=== PATIENT | female | born 1950 | race Caucasian/White ===

== ENCOUNTER 2020-05-28 11:02 | Outpatient (REF) | payer BC, SELFPAY ==
--- NOTE | 2020-05-28 11:16 | XR_ITS ---
EXAMINATION: XR CHEST CLINICAL INFORMATION: Bronchitis COMPARISON: Prior chest August 2015. TECHNIQUE: 2 views of the chest were obtained. FINDINGS: No acute significant abnormality is noted involving the heart, lungs, mediastinum, bony thorax or soft tissues. Spondylosis of the dorsal spine unchanged. XR/XR chest 2V IMPRESSION: No acute disease
[2020-05-28 13:15] LABS: Anion Gap 10 (12-20); Blood Urea Nitrogen 11 mg/dL (9-16); Carbon Dioxide 34 mmol/L (22-29); Chloride 101 mmol/L (96-108); Estimated Glomerular Filt Rate > 60; Glucose Fasting 122 mg/dL (60-99); Potassium 4.1 mmol/l (3.3-5.1); Sodium 141 mmol/L (135-145)
[2020-05-28 13:26] LABS: TSH reflex Free T4 0.49 mIU/mL (0.32-4.0)
== END 2020-05-28 11:03 | disposition home or self-care (01) ==
LOC: HO.LAB 11:02
PROVIDERS: PCP Internal Medicine; Visit Provider Nurse Practitioner Family
DX: E03.9 Hypothyroidism, unspecified (principal); E11.9 Type 2 diabetes mellitus without complications; J40 Bronchitis, not specified as acute or chronic
CPT/HCPCS: 71046; 80048; 84443

== ENCOUNTER 2020-11-21 08:30 | Outpatient (REF) | payer BC, SELFPAY ==
--- NOTE | ~2020-11-21 | MM_ITS ---
EXAMINATION: MM SCREENING DIGITAL BREAST TOMOSYNTHESIS, BILATERAL CLINICAL INFORMATION: Screening. Asymptomatic. The lifetime risk of breast cancer based on the Tyrer-Cuzick Model is 3%. COMPARISON: Mammography: 12/31/2016, 05/16/2013, 05/04/2013 TECHNIQUE: Digital breast tomosynthesis is performed in both the craniocaudal and mediolateral oblique views along with computer-aided detection (CAD). Synthesized 2D images are generated from the tomosynthesis. Additional bilateral CC and additional left MLO views are provided. FINDINGS: There are scattered areas of fibroglandular density (ACR BI-RADS breast composition Category b). There are no significant masses, abnormal calcifications, or other abnormalities. Parenchymal pattern is similar to prior studies. The axilla and skin contours are unremarkable. MM/MM tomosynthesis screening BI IMPRESSION: No mammographic evidence of malignancy. ASSESSMENT: BI-RADS 1: Negative RECOMMENDATION: Routine annual mammography screening. This patient's information was entered into a reminder system with a target due date for their next mammogram.
== END 2020-11-21 08:31 | disposition home or self-care (01) ==
LOC: HO.MAMMO 08:30
PROVIDERS: PCP Internal Medicine; Visit Provider Internal Medicine
DX: Z12.31 Encounter for screening mammogram for malignant neoplasm of breast (principal)
CPT/HCPCS: 77063; 77067

== ENCOUNTER 2021-02-11 15:17 | Outpatient (REF) | payer BC, SELFPAY ==
--- NOTE | ~2021-02-11 | US_ITS ---
EXAMINATION: US VENOUS ULTRASOUND WITH DOPPLER LOWER EXTREMITY, LEFT CLINICAL INFORMATION: Pain lower extremity. Assess for occult DVT. COMPARISON: None TECHNIQUE: Ultrasound of the deep veins is performed from the hip to the calf with compression sonography and color and pulse Doppler assessment. Spectral analysis with color-flow imaging is performed. FINDINGS: There is normal venous compression and respiratory variation and augmented flow. The visualized common femoral vein, superficial femoral vein, profunda femoral vein, popliteal vein, and the trifurcation region shows no evidence of deep venous thrombosis. There is small popliteal fossa cyst measuring 3.3 x 1.3 x 3.4 cm. US/US venous duplex LE LT IMPRESSION: 1. No DVT demonstrated in the left lower extremity. 2. Small popliteal fossa cyst, 3.4 cm.
== END 2021-02-11 15:18 | disposition home or self-care (01) ==
LOC: HO.US 15:17
PROVIDERS: Visit Provider Internal Medicine
DX: M71.22 Synovial cyst of popliteal space [Baker], left knee (principal); M79.605 Pain in left leg
CPT/HCPCS: 93971

== ENCOUNTER 2021-02-15 08:54 | Outpatient (REF) | payer BC, SELFPAY ==
[2021-02-15 09:59] LABS: Hematocrit 40.7 % (37-47); Hemoglobin 12.9 g/dl (12.0-16.0); Mean Corpuscular HGB Conc 31.7 g/dl (31.0-35.0); Mean Corpuscular Hemoglobin 27.7 pg (27.0-33.0); Mean Corpuscular Volume 87.5 fL (80-98); Mean Platelet Volume 10.8 fL (9.4-12.3); Platelet Count 282 X10*3/uL (160-400); Red Blood Count 4.65 X10*6/uL (4.20-5.50); Red Cell Distribution Width 13.2 % (11.0-16.0)
[2021-02-15 10:28] LABS: Glucose Urine UA NEG (NEG); Leukocyte Esterase Urine 2+ (NEG); Nitrite Urine NEG (NEG); Specific Gravity - Urine 1.015 (1.005-1.025); Urine Blood NEG (NEG); Urine Ketones NEG (NEG); Urine Protein NEG (NEG-TRACE)
[2021-02-15 10:38] LABS: Appearance Urine HAZY; Color Urine YELLOW
[2021-02-15 11:05] LABS: RBC Urine 0-2 /HPF (0); Renal Epithelial Cells Urine TRACE /LPF; Squamous Epithelial Cell Urine TRACE /LPF
[2021-02-15 11:12] LABS: Alanine Aminotransferase 10 U/L (0-31); Albumin Level 3.8 g/dL (3.5-5.0); Alkaline Phosphatase 80 U/L (39-117); Anion Gap 13 (12-20); Aspartate Amino Transferase 15 U/L (5-31); Bilirubin Direct < 0.2 mg/dL (0.0-0.5); Bilirubin Total 0.3 mg/dL (0.0-1.0); Blood Urea Nitrogen 13 mg/dL (9-16); Calcium 9.5 mg/dL (8.4-10.2); Carbon Dioxide 29 mmol/L (22-29); Chloride 104 mmol/L (96-108); Cholesterol 184 mg/dL; Estimated Glomerular Filt Rate > 60; Glucose Random 93 mg/dL (60-115); HDL Cholesterol 50 mg/dL; LDL Cholesterol Calculated 113 mg/dl; Potassium 4.4 mmol/L (3.3-5.1); Sodium 142 mmol/L (135-145); Total Protein 7.1 g/dL (6.5-8.0); Triglycerides 105 mg/dL
[2021-02-15 11:22] LABS: Thyroid Stimulating Hormone 0.49 uIU/mL (0.32-4.0)
[2021-02-19 14:35] LABS: Vitamin D 25-OH, D2 <4 ng/mL; Vitamin D 25-OH, D3 18 ng/mL; Vitamin D 25-OH, Total 18 ng/mL (30-100)
== END 2021-02-15 08:55 | disposition home or self-care (01) ==
LOC: HO.LAB 08:54
PROVIDERS: PCP Internal Medicine; Visit Provider Internal Medicine
DX: Z00.00 Encounter for general adult medical examination without abnormal findings (principal)
CPT/HCPCS: 36415; 80048; 80061; 80076; 81001; 82306; 84443; 85027

== ENCOUNTER 2021-08-02 15:20 | Outpatient (REF) | payer BC, SELFPAY ==
[2021-08-02 15:41] LABS: Appearance Urine CLEAR; Color Urine YELLOW; Glucose Urine UA NEG (NEG); Leukocyte Esterase Urine 2+ (NEG); Nitrite Urine NEG (NEG); Urine Blood NEG (NEG); Urine Ketones NEG (NEG); Urine Protein NEG (NEG-TRACE)
[2021-08-02 15:54] LABS: Bacteria Urine 1+ /LPF; RBC Urine 0 /HPF (0); Squamous Epithelial Cell Urine 1+ /LPF
[2021-08-02 15:55] LABS: Urine Talc Crystals 1+ /LPF
== END 2021-08-02 15:21 | disposition home or self-care (01) ==
LOC: HO.LAB 15:20
PROVIDERS: PCP Internal Medicine; Visit Provider Internal Medicine
DX: N39.0 Urinary tract infection, site not specified (principal)
CPT/HCPCS: 81001

== ENCOUNTER 2022-03-18 07:33 | Outpatient (REF) | payer BC, SELFPAY ==
[2022-03-18 08:06] LABS: Hematocrit 41.8 % (37.0-47.0); Hemoglobin 13.7 g/dl (12.0-16.0); Mean Corpuscular HGB Conc 32.8 g/dl (31.0-35.0); Mean Corpuscular Hemoglobin 28.5 pg (27.0-33.0); Mean Corpuscular Volume 86.9 fL (80.0-98.0); Mean Platelet Volume 10.1 fL (9.4-12.3); Platelet Count 280 X10*3/uL (160-400); Red Blood Count 4.81 X10*6/uL (4.20-5.50); Red Cell Distribution Width 12.9 % (11.0-16.0); White Blood Count 6.3 X10*3/uL (4.8-10.8)
[2022-03-18 08:36] LABS: Alanine Aminotransferase 12 U/L (0-31); Albumin Level 3.9 g/dL (3.5-5.0); Alkaline Phosphatase 81 U/L (39-117); Anion Gap 14 (12-20); Aspartate Amino Transferase 16 U/L (5-31); Bilirubin Direct < 0.2 mg/dL (0.0-0.5); Bilirubin Total 0.2 mg/dL (0.0-1.0); Blood Urea Nitrogen 14 mg/dL (9-16); Calcium 9.5 mg/dL (8.4-10.2); Carbon Dioxide 30 mmol/L (22-29); Chloride 102 mmol/L (96-108); Cholesterol 198 mg/dL; Estimated Glomerular Filt Rate > 60; Glucose Random 112 mg/dL (60-115); HDL Cholesterol 66 mg/dL; LDL Cholesterol Calculated 120 mg/dl; Potassium 4.7 mmol/L (3.3-5.1); Sodium 141 mmol/L (135-145); Total Protein 7.4 g/dL (6.5-8.0); Triglycerides 61 mg/dL
[2022-03-18 08:57] LABS: Thyroid Stimulating Hormone 0.79 uIU/mL (0.32-4.0)
[2022-03-18 09:24] LABS: Appearance Urine Clear; Color Urine Yellow; Glucose Urine UA Negative (Negative); Leukocyte Esterase Urine Moderate (2+) (Negative); Nitrite Urine Negative (Negative); Urine Blood Negative (Negative); Urine Ketones Negative (Negative); Urine Protein Negative (Neg-Trace)
[2022-03-18 09:52] LABS: Bacteria Urine None Seen (None Seen); Hyaline Casts Urine 0-2 /LPF (0-2); Other Crystals Urine Present; WBC Urine 0-5 /HPF (0-5)
== END 2022-03-18 07:34 | disposition home or self-care (01) ==
LOC: HO.LAB 07:33
PROVIDERS: PCP Internal Medicine; Visit Provider Internal Medicine
DX: Z00.00 Encounter for general adult medical examination without abnormal findings (principal)
CPT/HCPCS: 36415; 80048; 80061; 80076; 81001; 84443; 85027

== ENCOUNTER 2022-03-30 11:13 | Outpatient (REF) | payer BC, SELFPAY | END 2022-03-30 11:14 | disposition home or self-care (01) | LOC: HO.LNP 11:13 | PROVIDERS: Visit Provider Emergency Medicine | DX: N39.0 Urinary tract infection, site not specified (principal) | CPT/HCPCS: 87086 ==

== ENCOUNTER 2022-04-06 14:56 | Outpatient (REF) | payer BC, SELFPAY ==
[2022-04-06 15:44] LABS: Estimated Average Glucose 114 mg/dL; Hemoglobin A1c % 5.6 %
[2022-04-06 16:31] LABS: Appearance Urine Clear; Color Urine Yellow; Glucose Urine UA Negative (Negative); Leukocyte Esterase Urine Small (1+) (Negative); Nitrite Urine Negative (Negative); PH 5.5 (5.0-9.0); Specific Gravity - Urine 1.015 (1.005-1.025); UMIC TRIGGER UA YES; Urine Blood Negative (Negative); Urine Ketones Trace mg/dL (Negative); Urine Protein Negative (Neg-Trace)
[2022-04-06 16:39] LABS: Bacteria Urine None Seen (None Seen); Hyaline Casts Urine 0-2 /LPF (0-2); WBC Urine 0-5 /HPF (0-5)
== END 2022-04-06 14:57 | disposition home or self-care (01) ==
LOC: HO.LAB 14:56
PROVIDERS: PCP Internal Medicine; Visit Provider Internal Medicine
DX: R81 Glycosuria (principal)
CPT/HCPCS: 36415; 81001; 83036

== ENCOUNTER 2022-04-25 07:39 | Outpatient (REF) | payer BC, SELFPAY ==
[2022-04-25 08:51] LABS: Influenza A PCR NEGATIVE (Negative); Influenza B PCR NEGATIVE (Negative); Resp Syncy Virus RNA Qual PCR NEGATIVE (Negative); SARS COV2 PCR INHOUSE NEGATIVE (Negative)
== END 2022-04-25 07:40 | disposition home or self-care (01) ==
LOC: HO.LAB 07:39
PROVIDERS: Visit Provider Nurse Practitioner Family
DX: U07.1 COVID-19 (principal)
CPT/HCPCS: 0241U

== ENCOUNTER 2022-08-27 15:28 | Outpatient (REF) | payer BC, SELFPAY ==
[2022-08-27 16:24] LABS: Influenza A PCR NEGATIVE (Negative); Influenza B PCR NEGATIVE (Negative); Resp Syncy Virus RNA Qual PCR NEGATIVE (Negative); SARS COV2 PCR INHOUSE NEGATIVE (Negative)
== END 2022-08-27 15:29 | disposition home or self-care (01) ==
LOC: HO.LNP 15:28
PROVIDERS: Visit Provider Physician Assistant Medical
DX: Z20.822 Contact with and (suspected) exposure to COVID-19 (principal); R05.9 Cough, unspecified
CPT/HCPCS: 0241U

== ENCOUNTER 2022-09-19 10:26 | Outpatient (REF) | payer BC, SELFPAY ==
[2022-09-19 11:06] LABS: Hematocrit 41.8 % (37.0-47.0); Hemoglobin 13.2 g/dl (12.0-16.0); Mean Corpuscular HGB Conc 31.6 g/dl (31.0-35.0); Mean Corpuscular Hemoglobin 27.4 pg (27.0-33.0); Mean Corpuscular Volume 86.9 fL (80.0-98.0); Mean Platelet Volume 10.2 fL (9.4-12.3); Platelet Count 275 X10*3/uL (160-400); Red Blood Count 4.81 X10*6/uL (4.20-5.50); Red Cell Distribution Width 13.6 % (11.0-16.0); White Blood Count 6.9 X10*3/uL (4.8-10.8)
[2022-09-19 11:54] LABS: Alanine Aminotransferase 13 U/L (0-31); Albumin Level 3.9 g/dL (3.5-5.0); Alkaline Phosphatase 82 U/L (39-117); Anion Gap 12 (12-20); Aspartate Amino Transferase 17 U/L (5-31); Bilirubin Direct < 0.2 mg/dL (0.0-0.5); Bilirubin Total 0.4 mg/dL (0.0-1.0); Blood Urea Nitrogen 16 mg/dL (9-16); Calcium 9.2 mg/dL (8.4-10.2); Carbon Dioxide 30 mmol/L (22-29); Chloride 106 mmol/L (96-108); Cholesterol 207 mg/dL; Estimated Glomerular Filt Rate > 60; Glucose Random 104 mg/dL (60-115); HDL Cholesterol 60 mg/dL; LDL Cholesterol Calculated 126 mg/dl; Potassium 4.8 mmol/L (3.3-5.1); Sodium 143 mmol/L (135-145); Total Protein 7.3 g/dL (6.5-8.0); Triglycerides 106 mg/dL
[2022-09-19 12:11] LABS: Thyroid Stimulating Hormone 0.72 uIU/mL (0.32-4.0)
[2022-09-19 12:20] LABS: Appearance Urine Cloudy; Color Urine Yellow; Glucose Urine UA Negative (Negative); Leukocyte Esterase Urine Trace (Negative); Nitrite Urine Negative (Negative); UMIC TRIGGER UA YES; Urine Blood Negative (Negative); Urine Ketones Negative (Negative); Urine Protein Negative (Neg-Trace)
[2022-09-19 12:32] LABS: Bacteria Urine None Seen (None Seen); Hyaline Casts Urine 0-2 /LPF (0-2); RBC Urine 0-2 /HPF (0-2); Squamous Epithelial Cell Urine 0-2 /HPF (0-2); WBC Urine 0-5 /HPF (0-5)
== END 2022-09-19 10:27 | disposition home or self-care (01) ==
LOC: HO.LAB 10:26
PROVIDERS: PCP Internal Medicine; Visit Provider Internal Medicine
DX: Z00.00 Encounter for general adult medical examination without abnormal findings (principal); E66.01 Morbid (severe) obesity due to excess calories; E03.9 Hypothyroidism, unspecified; I10 Essential (primary) hypertension; Z68.41 Body mass index [BMI] 40.0-44.9, adult
CPT/HCPCS: 36415; 80048; 80061; 80076; 81001; 84443; 85027

== ENCOUNTER 2022-10-01 09:44 | Outpatient (REF) | payer BC, SELFPAY ==
--- NOTE | ~2022-10-01 | MM_ITS ---
EXAMINATION: MM SCREENING DIGITAL BREAST TOMOSYNTHESIS, BILATERAL CLINICAL INFORMATION: Screening. Asymptomatic. The lifetime risk of breast cancer based on the Tyrer-Cuzick Model is 3%. COMPARISON: Mammography: 11/21/2020, 12/31/2016, 05/04/2013 TECHNIQUE: Digital breast tomosynthesis is performed in both the craniocaudal and mediolateral oblique views along with computer-aided detection (CAD). Synthesized 2D images are generated from the tomosynthesis. FINDINGS: There are scattered areas of fibroglandular density (ACR BI-RADS breast composition Category b). There are no significant masses, abnormal calcifications, or other abnormalities. Parenchymal pattern is similar to prior studies. No architectural abnormality. The axilla and skin contours are unremarkable. MM/MM tomosynthesis screening BI IMPRESSION: No mammographic evidence of malignancy. ASSESSMENT: BI-RADS 1: Negative RECOMMENDATION: Routine annual mammography screening. This patient's information was entered into a reminder system with a target due date for their next mammogram.
== END 2022-10-01 09:45 | disposition home or self-care (01) ==
LOC: HO.MAMMO 09:44
PROVIDERS: PCP Internal Medicine; Visit Provider Internal Medicine
DX: Z12.31 Encounter for screening mammogram for malignant neoplasm of breast (principal)
CPT/HCPCS: 77063; 77067

== ENCOUNTER 2023-05-11 10:24 | Outpatient (AMB) | payer BC, SELFPAY ==
[2023-05-11 10:26] VITALS: BP 160/94; PULSE 94; TEMP 36.7; O2SAT 97; BMI 49.1
--- NOTE | 2023-05-11 10:26 | A.OFFVIS_ITS ---
Intake Vital Signs 05/11/23 10:26 Height 5 ft 1.5 in Weight 264 lb BMI 49.1 BP 160/94 H Blood Pressure Location Lt brachial Position Sitting Pulse 94 Pulse Source Pulse Oximeter Temp 98.0 F Temp Source Oral Pulse Oximetry (%) 97 Oxygen Delivery Method Room Air Intake Visit Reasons: EST/high BP/weakness(lobby) Intake Note: Pt presents to the office today for c/o of high blood pressure that started this morning and she states she has been having body weakness and fatigue. Pt also states she has frequent urination and had a burning sensation yesterday when she urinated. Allergies acetaminophen [From Percocet] Allergy (Unknown, Verified 05/11/23 10:29) Vomiting morphine [MORPHINE] Allergy (Unknown, Verified 05/11/23 10:29) PALPITATION oxycodone [From Percocet] Allergy (Unknown, Verified 05/11/23 10:29) Vomiting HPI HPI Comments History of Present Illness Details 72-year-old female who [facility]. Patient is complaining of fatigue, weight gain, cough, excessive urination in elevated blood pressure. Endorses a fever 98. Denies chest pain [facility] Medical History Essential hypertension Hypercholesterolemia Morbid obesity with BMI of 40.0-44.9, adult Bautista's cyst of knee High cholesterol Hypothyroidism Hypertension Surgical History History of tubal ligation History of cholecystectomy Family History Mother No problems noted. Father No problems noted. Other Diabetes Social History Housing: House Alcohol intake: never Patient Tobacco Use Status: Never used Tobacco e-Cigarette/Vaping Use: Never Used Second Hand Smoke Exposure: No service: No Current occupational status: employed Cognitive needs: No Hearing needs: No Vision needs: Yes (glasses) Review of Systems Const Reports chills, Reports fatigue and Reports lethargy Reports urinary urgency Endo Reports fatigue Physical Exam Vital Signs: Last Vital Signs Temp 98.0 F 05/11/23 10: Pulse 94 05/11/23 10: BP 160/94 H 05/11/23 10:26 Pulse Ox 97 05/11/23 10:26 Oxygen Delivery Method Room Air 05/11/23 10:26 BMI result Body Mass Index 49.1 Const General: cooperative, no acute distress and alert Orientation/consciousness: patient oriented x3 Limitations: no limitations HEENT Head: Yes normal to inspection Ears: hearing grossly normal bilaterally and external ears normal General nose exam: Normal external nose present Eyes General: appearance normal, both eyes and all related structures Neck Neck: Yes normal visual inspection Chest Chest palpation & inspection: normal inspection of the chest Resp Effort & Inspection: normal respiratory effort, able to speak in complete sentences and no audible wheezes Auscultation: clear to auscultation bilaterally Cardio Other: 1- 2+ bilateral lower extremity edema Rate: regular rate Rhythm: regular rhythm GI Inspection: Yes normal to inspection Palpation (GI): Soft to palpation and nontender Skin General skin exam: no rashes or lesions noted Neuro General: patient oriented x3 Psych Appearance: grossly normal Mental Status: mental status grossly normal Speech and movement: Normal speech and movement present Affect: normal affect Attitude: cooperative Thought process: Normal thought process present Thought content: Normal thought content present Results AMB Urinalysis, Automated UA Leukoctes 0 Christofer/uL Last Edit by Aliza Wright MA on 05/11/23 10:50 UA Nitrite Negative Last Edit by Aliza Wright MA on 05/11/23 10:50 UA Urobilinogen 0.2 mg/dL Last Edit by Aliza Wright MA on 05/11/23 10:50 UA Protein 0 mg/dL Last Edit by Aliza Wright MA on 05/11/23 10:50 UA pH 6.5 Last Edit by Aliza Wright MA on 05/11/23 10:50 UA Blood 0 Bert/uL Last Edit by Aliza Wright MA on 05/11/23 10:50 UA Specific Moss 1.005 Last Edit by Aliza Wright MA on 05/11/23 10:50 UA Ketone Negative Last Edit by Aliza Wright MA on 05/11/23 10:50 UA Bilirubin 0 mg/dL Last Edit by Aliza Wright MA on 05/11/23 10:50 UA Glucose 0 mg/dL Last Edit by Aliza Wright MA on 05/11/23 10:50 AMB Random Glucose (hemocue) AMB Random Glucose (hemocue) 95 mg/dL Last Edit by Elizabeth Parikh CMA on 05/11/23 11:10 Results Reviewed Results Reviewed: Laboratory Last Values Urine pH (Auto) 6.5 05/11/23 10:49 Specific Moss (Auto) 1.005 05/11/23 10:49 Urine Protein (Auto) 0 mg/dL 05/11/23 10:49 Glucose (UA)(Auto) 0 mg/dL 05/11/23 10:49 Urine Ketones (Auto) Negative 05/11/23 10:49 Urine Blood (Auto) 0 Bert/uL 05/11/23 10:49 Urine Nitrite (Auto) Negative 05/11/23 10:49 Urine Bilirubin (Auto) 0 mg/dL 05/11/23 10:49 Urine Urobilinogen (Auto) 0.2 mg/dL 05/11/23 10:49 Leukocyte Esterase (Auto) 0 Christofer/uL 05/11/23 10:49 Assessment & Plan Assessment & Plan (1) Fatigue: Code(s): R53.83 - Other fatigue Qualifiers: Fatigue type: unspecified Qualified Code(s): R53.83 - Other fatigue Plan: Present notable for mild elevation of blood pressure. Exam patient is insulin oriented no acute distress exam notable for 1 to 2+ lower extremity edema bilaterally. Unclear etiology of patient's symptoms at this time. Her consideration is new onset diabetes however random glucose was 95. Also of consideration is medication interactions or reactions as patient recently started lisinopril and felt most of her symptoms started after that. At this time will start her on low-dose Lasix for several days as patient does have lower extremity edema. Will add on TSH to check patient's thyroid she has hypothyroidism which could be contributing to symptoms. With regard to patient's blood pressure no signs of end-organ damage so will hold ordered and the medication adjustments at this time patient will return to primary care provider Discharge instructions, follow up and treatment are discussed with patient in my usual fashion. Alternatives in treatment are also discussed. The patient will return for worsening symptoms or as needed. Advised that any labs/imaging ordered will be followed up on and contact made if further treatment needed. Counseled that patient's condition may require further evaluation and/or treatment. Symptoms of concern for worsening disorder discussed in detail in my customary manner. Patient does verbalize understanding of the plan, there are no apparent barriers to communication. The patient is given the opportunity to ask questions and have them answered to his/her satisfaction Orders: Orders AMB Urinalysis Automated Today Z13.9 - Encounter for screening, unspecified AMB Random Glucose (hemocue) Today Z13.9 - Encounter for screening, unspecified AMB Glucose monitoring Today R63.5 - Abnormal weight gain TSH reflex Free T4 Today E03.9 - Hypothyroidism, unspecified Medications: New furosemide 10 mg (1/2 x 20 mg) PO DAILY 3 tabs 0RF 5 days Coding Level of Care Code Est Pt Level 4 (83686) Diagnoses Fatigue, unspecified type R53.83 Fatigue type: unspecified
== END 2023-05-11 11:21 | disposition home or self-care (01) ==
PROVIDERS: PCP Internal Medicine; Visit Provider Physician Assistant
DX: R53.83 Other fatigue (principal); R63.5 Abnormal weight gain
CPT/HCPCS: 81003; 82948; 99214

== ENCOUNTER 2023-05-11 11:23 | Outpatient (REF) | payer BC, SELFPAY ==
[2023-05-11 13:39] LABS: TSH reflex Free T4 0.77 uIU/mL (0.32-4.0)
== END 2023-05-11 11:24 | disposition home or self-care (01) ==
LOC: HO.HMGCLDS 11:23
PROVIDERS: PCP Internal Medicine; Visit Provider Physician Assistant
DX: E03.9 Hypothyroidism, unspecified (principal)
CPT/HCPCS: 36415; 84443

== ENCOUNTER 2023-05-18 14:38 | Outpatient (AMB) | payer BC, SELFPAY ==
--- NOTE | 2023-05-18 14:40 | A.OFFPC_ITS ---
Vital Signs 05/18/23 14:54 Height 5 ft 1.5 in Weight 263 lb BMI 48.9 BP 130/70 Blood Pressure Location Lt brachial Position Sitting Pulse 80 Pulse Source Pulse Oximeter Pulse Oximetry (%) 96 Oxygen Delivery Method Room Air Intake Visit Reasons: 6mth f/u HTN Intake Note: Patient is here to follow up on HTN. Software Installer Required: No Financial Accounting Manager: Not Required per policy Accompanied by: Self / Same As Patient Allergies acetaminophen [From Percocet] Allergy (Unknown, Verified 05/19/23 04:43) Vomiting morphine [MORPHINE] Allergy (Unknown, Verified 05/19/23 04:43) PALPITATION oxycodone [From Percocet] Allergy (Unknown, Verified 05/19/23 04:43) Vomiting lisinopril Adverse Reaction (Intermediate, Verified 05/19/23 04:43) Diarrhea Medication List - Last Reconciled 05/19/23 by Steven Bhat MD levothyroxine 75 mcg PO DAILY losartan 50 mg PO DAILY omeprazole 20 mg PO DAILY simvastatin 10 mg PO BEDTIME Tobacco use date assessed: 05/18/23 Fall risk assessment: No Falls in past year Last assessed Fall Risk: 05/18/23 Dental Screening Dental Screen Date: 05/18/23 Did you have a dental visit in the last 12 months?: No Did you have a dental problem in the last 6 months where you did not have access to dental care?: No Was dental information given to patient?: Patient has dentist HPI 6mth f/u HTN HPI Details 72-year-old female presents to the offic e to discuss her chronic medical conditions. Patient is complaining of fatigue and tiredness. Symptoms are generalized. She wonders if her thyroid is malfunctioning. She was seen at the walk-in clinic last week for similar complaints. Her blood pressure was elevated and Lasix was offered to her. Patient did not take the Lasix. She is complaining of a slight irritant cough. Not exercising or following any particular diet. 16 lb weight gain since last office visi t. Patient reports no dietary indiscretion. [facility] Medical History Essential hypertension Hypercholesterolemia Morbid obesity with BMI of 40.0-44.9, adult Bautista's cyst of knee High cholesterol Hypothyroidism Hypertension Surgical History History of tubal ligation History of cholecystectomy Family History Mother No problems noted. Father No problems noted. Other Diabetes Social History Housing: House Alcohol intake: never Patient Tobacco Use Status: Never used Tobacco e-Cigarette/Vaping Use: Never Used Second Hand Smoke Exposure: No service: No Current occupational status: employed Cognitive needs: No Hearing needs: No Vision needs: Yes (glasses) Questionnaire PHQ-9 Over the last 2 weeks, how often have you been bothered by any of the following problems? Depression Screening Interpretation: Negative Depression Screening Done: Yes Source: Developed by Drs. Kevin Braxton, Sandie Felipe, Williams Villalpando and colleagues, with an educational ean from [employer]. Thrive Questionnaire Date Thrive assessed: 09/19/22 KERMIT-7 AMB Questionnaire KERMIT-7 Date KERMIT - 7 assessed: 09/19/22 Source: Developed by Drs. Kevin Braxton, Sandie Felipe, Williams Villalpando and colleagues, with an educational ean from [employer]. Physical exam (Primary Care) Vital Signs: Last Vital Signs Pulse 80 05/18/23 14:54 BP 130/70 05/18/23 14:54 Pulse Ox 96 05/18/23 14:54 Oxygen Delivery Method Room Air 05/18/23 14:54 Care Plan Goal for BP management: Blood pressure in range. Medications have been changed. BMI result Body Mass Index 48.9 BMI Assessment/Plan discussion: High Tobacco/Smoking Status: Tobacco use Status Tobacco use date assessed 05/18/23 05/18/23 15:00 Patient Tobacco Use Status Never used Tobacco 05/18/23 14:40 e-Cigarette/Vaping Use Never Used 05/18/23 14:40 Depression Screening Interpretation: Negative Thrive Assessment: Date of Thrive Assessment Date Thrive assessed 09/19/22 05/18/23 14:40 Const General: cooperative and healthy appearing Nutritional Appearance: well nourished Orientation/consciousness: patient oriented x3 Limitations: no limitations HENMT Head: Yes normal to inspection Eyes General: appearance normal, both eyes and all related structures Neck Neck: Yes normal visual inspection Chest Chest palpation & inspection: normal palpation of entire chest wall Resp Effort & Inspection: normal respiratory effort Neuro General: patient oriented x3 Office Procedures Flu Questionnaire Does the patient have a severe egg allergy?: No Does the patient have severe life threatening allergies?: No Does the patient have a fever or illness today?: No Has the patient ever had Guillain-[place] Syndrome?: No Has the patient ever had any past reaction to a flu shot?: No Immunizations flu vacc [id number] 6mos up(PF) 60 mcg(15 mcgx4)/0.5 mL IM syringe Performing Provider: Steven Bhat MD [facility] Administered by: TI Chavez on 05/18/23 15:06 Dose Route Admin Location Dispensed Lot Number Expiration Date NDC Oil Winterizer 0.5 mL IM Left Deltoid 0.5 mL [id number] 01/14/24 01136-295-29 [employer] VIS Given Date VIS Provided VIS Publication Date 05/18/23 Single Vaccine 21 Eligibility Eligibility Date Funding Source Not VF Eligible 05/18/23 Private Results Reviewed Results Reviewed: Lab work from previous visit to the walk-in reviewed. Assessment and Plan Assessment & Plan (1) Fatigue: Code(s): R53.83 - Other fatigue Plan: Her thyroid is in range. Patient was advised to continue Synthroid at the same dosage. Other reasons for her increased fatigue and malaise includes weight gain. Patient has to have a control on her diet. She needs to eliminate sugars, starches from her diet. Metoprolol and YOBANI-inhibitor has been replaced by a higher dose ARB. Will follow-up in 3 weeks. Orders: Orders Influenza [id number] Immunization 05/18/23 Z23 - Encounter for immunization Medications: New losartan 50 mg PO DAILY 30 tabs 0RF Discontinued metoprolol succinate ER Discontinued Reason: Doctor's Order 50 mg (2 x 25 mg) PO DAILY 180 tabs 1RF lisinopril Discontinued Reason: Doctor's Order 5 mg PO DAILY 30 tabs 3RF I10 - Essential (primary) hypertension furosemide Discontinued Reason: Patient Refused 10 mg (1/2 x 20 mg) PO DAILY 5 days 3 tabs 0RF Coding Level of Care Code Est Pt Level 4 (30491) Diagnoses Fatigue R53.83
[2023-05-18 14:54] VITALS: BP 130/70; PULSE 80; O2SAT 96; BMI 48.9
== END 2023-05-18 15:21 | disposition home or self-care (01) ==
PROVIDERS: PCP Internal Medicine; Visit Provider Internal Medicine
DX: Z23 Encounter for immunization (principal)
CPT/HCPCS: 90471; 90686; 99214

== ENCOUNTER 2023-05-27 08:05 | Outpatient (REF) | payer BC, SELFPAY ==
[2023-05-27 08:45] LABS: Hematocrit 42.4 % (37.0-47.0); Hemoglobin 13.6 g/dl (12.0-16.0); Mean Corpuscular HGB Conc 32.1 g/dl (31.0-35.0); Mean Corpuscular Hemoglobin 27.7 pg (27.0-33.0); Mean Corpuscular Volume 86.4 fL (80.0-98.0); Mean Platelet Volume 10.1 fL (9.4-12.3); Platelet Count 287 X10*3/uL (160-400); Red Blood Count 4.91 X10*6/uL (4.20-5.50); Red Cell Distribution Width 13.1 % (11.0-16.0); White Blood Count 5.8 X10*3/uL (4.8-10.8)
[2023-05-27 09:12] LABS: Alanine Aminotransferase 15 U/L (0-31); Albumin Level 3.9 g/dL (3.5-5.0); Alkaline Phosphatase 94 U/L (39-117); Anion Gap 11 (12-20); Aspartate Amino Transferase 20 U/L (5-31); Bilirubin Direct 0.2 mg/dL (0.0-0.5); Bilirubin Total 0.4 mg/dL (0.0-1.0); Blood Urea Nitrogen 12 mg/dL (9-16); Calcium 9.7 mg/dL (8.4-10.2); Carbon Dioxide 31 mmol/L (22-29); Chloride 104 mmol/L (96-108); Cholesterol 178 mg/dL (<200); Estimated Glomerular Filt Rate > 60; Glucose Random 108 mg/dL (60-115); HDL Cholesterol 57 mg/dL (>40); LDL Cholesterol Calculated 102 mg/dL (<100); Potassium 4.4 mmol/L (3.3-5.1); Sodium 142 mmol/L (135-145); Total Protein 7.8 g/dL (6.5-8.0); Triglycerides 99 mg/dL (<150)
[2023-05-27 09:34] LABS: Erythrocyte Sedimentation Rate 17 MM/HR (0-20)
== END 2023-05-27 08:06 | disposition home or self-care (01) ==
LOC: HO.LAB 08:05
PROVIDERS: PCP Internal Medicine; Visit Provider Internal Medicine
DX: R53.83 Other fatigue (principal); E78.00 Pure hypercholesterolemia, unspecified
CPT/HCPCS: 36415; 80048; 80061; 80076; 85027; 85652

== ENCOUNTER 2023-06-15 14:16 | Outpatient (AMB) | payer BC, SELFPAY ==
[2023-06-15 14:34] VITALS: BP 156/86; PULSE 90; O2SAT 97; BMI 48.3
--- NOTE | 2023-06-15 14:34 | A.OFFPC_ITS ---
Vital Signs 06/15/23 14:34 Height 5 ft 1.5 in Weight 260 lb BMI 48.3 BP 156/86 H Blood Pressure Location Lt brachial Position Sitting Pulse 90 Pulse Source Pulse Oximeter Pulse Oximetry (%) 97 Oxygen Delivery Method Room Air Intake Visit Reasons: 3wks f/u / med review Intake Note: Patient here for 3 week medication review On Site Soil Evaluator Required: No Accompanied by: Self / Same As Patient Allergies acetaminophen [From Percocet] Allergy (Unknown, Verified 06/15/23 14:37) Vomiting morphine [MORPHINE] Allergy (Unknown, Verified 06/15/23 14:37) PALPITATION oxycodone [From Percocet] Allergy (Unknown, Verified 06/15/23 14:37) Vomiting lisinopril Adverse Reaction (Intermediate, Verified 06/15/23 14:37) Diarrhea Tobacco use date assessed: 05/18/23 Fall risk assessment: No Falls in past year Last assessed Fall Risk: 06/15/23 Dental Screening Dental Screen Date: 06/15/23 Did you have a dental visit in the last 12 months?: Yes Did you have a dental problem in the last 6 months where you did not have access to dental care?: No Was dental information given to patient?: Patient has dentist HPI 3wks f/u / med review HPI Details 72-year-old female [facility]. Since last office visit, metoprolol was stopped and YOBANI-inhibitor started. She reports that her fatigue symptoms have improved. Not following any particular exercise. She is lost 3 lb after she has made some diet changes. [facility] Medical History Essential hypertension Hypercholesterolemia Morbid obesity with BMI of 40.0-44.9, adult Bautista's cyst of knee High cholesterol Hypothyroidism Hypertension Surgical History History of tubal ligation History of cholecystectomy Family History Mother No problems noted. Father No problems noted. Other Diabetes Social History Housing: House Alcohol intake: never Patient Tobacco Use Status: Never used Tobacco e-Cigarette/Vaping Use: Never Used Second Hand Smoke Exposure: No service: No Current occupational status: employed Cognitive needs: No Hearing needs: No Vision needs: Yes (glasses) Questionnaire Thrive Questionnaire Date Thrive assessed: 09/19/22 KERMIT-7 AMB Questionnaire KERMIT-7 Date KERMIT - 7 assessed: 09/19/22 Source: Developed by Drs. Kevin Braxton, Sandie Felipe, Williams Villalpando and colleagues, with an educational ean from [employer]. Physical exam (Primary Care) Vital Signs: Last Vital Signs Pulse 90 06/15/23 14:34 BP 156/86 H 06/15/23 14:34 Pulse Ox 97 06/15/23 14:34 Oxygen Delivery Method Room Air 06/15/23 14:34 BMI result Body Mass Index 48.3 Tobacco/Smoking Status: Tobacco use Status Tobacco use date assessed 05/18/23 06/15/23 14:40 Patient Tobacco Use Status Never used Tobacco 06/15/23 14:40 e-Cigarette/Vaping Use Never Used 06/15/23 14:40 Thrive Assessment: Date of Thrive Assessment Date Thrive assessed 09/19/22 06/15/23 14:40 Const General: cooperative and healthy appearing Nutritional Appearance: well nourished Orientation/consciousness: patient oriented x3 Limitations: no limitations HENMT Head: Yes normal to inspection Eyes General: appearance normal, both eyes and all related structures Neck Neck: Yes normal visual inspection Chest Chest palpation & inspection: normal palpation of entire chest wall Resp Effort & Inspection: normal respiratory effort Neuro General: patient oriented x3 Assessment and Plan Assessment & Plan (1) Fatigue: Code(s): R53.83 - Other fatigue Plan: Continue ARB. Blood pressure is slightly elevated. Sleep study has been ordered. (2) Obesity: Comment: BMI=44.8 Code(s): E66.9 - Obesity, unspecified Orders: Referrals Sleep Medicine Referral E66.9 - Obesity, unspecified, R53.83 - Other fatigue Coding Level of Care Code Est Pt Level 3 (97212) Diagnoses Fatigue R53.83 Obesity E66.9
== END 2023-06-15 15:20 | disposition home or self-care (01) ==
PROVIDERS: PCP Internal Medicine; Visit Provider Internal Medicine
DX: R53.83 Other fatigue (principal); E66.9 Obesity, unspecified; Z68.42 Body mass index [BMI] 45.0-49.9, adult
CPT/HCPCS: 99213

== ENCOUNTER 2023-07-20 08:56 | Outpatient (AMB) | payer BC, SELFPAY ==
--- NOTE | 2023-07-20 09:06 | MHC.PC.OV ---
Vital Signs 07/20/23 09:09 Height 5 ft 1.5 in Weight 258 lb BMI 48.0 BP 124/68 Blood Pressure Location Lt brachial Position Sitting Pulse 76 Pulse Source Pulse Oximeter Pulse Oximetry (%) 97 Oxygen Delivery Method Room Air Intake Visit Reasons: [facility] ED F/U 07/07/23 Intake Note: Patient is here to follow-up after a visit the emergency department at [facility] on 07/07/23 Credit Administration Officer Required: No Straightedge Machine Operator Helper: Not Required per policy Accompanied by: Self / Same As Patient Allergies acetaminophen [From Percocet] Allergy (Unknown, Verified 07/20/23 10:10) Vomiting morphine [MORPHINE] Allergy (Unknown, Verified 07/20/23 10:10) PALPITATION oxycodone [From Percocet] Allergy (Unknown, Verified 07/20/23 10:10) Vomiting lisinopril Adverse Reaction (Intermediate, Verified 07/20/23 10:10) Diarrhea Medication List - Last Reconciled 07/20/23 by Steven Bhat MD levothyroxine 75 mcg PO DAILY losartan 50 mg PO DAILY omeprazole 20 mg PO DAILY simvastatin 10 mg PO BEDTIME Tobacco use date assessed: 07/20/23 Fall risk assessment: No Falls in past year Last assessed Fall Risk: 07/20/23 Dental Screening Dental Screen Date: 07/20/23 Did you have a dental visit in the last 12 months?: Yes Did you have a dental problem in the last 6 months where you did not have access to dental care?: No Was dental information given to patient?: Patient has dentist HPI [facility] ED F/U 07/07/23 HPI Details 72-year-old female presents to the office after a recent visit today emergency room. Patient was started on 50 mg losartan in the last office visit. Her blood pressure was elevated to 156/80 and I had suggested increasing the losartan to 100 mg. Prior to her increasing the dosages, on her way to work, patient felt dizzy and weak and decided to proceed to [facility] emergency room. Again her blood pressure was elevated. CT scan of the head and abdomen was done which was unremarkable. She was ruled out for a stroke. Blood pressure medications were not changed and was asked to follow-up here. Patient continues to take 50 mg of losartan every day. Her blood pressure continues to be in the 150-160 systolic range. She does not report many symptoms. She has begun walking and has lost 5 lb since the last visit. She is also reduce the amount of salt intake. [facility] Medical History Essential hypertension Hypercholesterolemia Morbid obesity with BMI of 40.0-44.9, adult Bautista's cyst of knee High cholesterol Hypothyroidism Hypertension Surgical History History of tubal ligation History of cholecystectomy Family History Mother No problems noted. Father No problems noted. Other Diabetes Social History Housing: House Alcohol intake: never Patient Tobacco Use Status: Never used Tobacco e-Cigarette/Vaping Use: Never Used Second Hand Smoke Exposure: No service: No Current occupational status: employed Cognitive needs: No Hearing needs: No Vision needs: Yes (glasses) Questionnaire PHQ-9 Over the last 2 weeks, how often have you been bothered by any of the following problems? 1. Little interest or pleasure in doing things: not at all 2. Feeling down, depressed, or hopeless: not at all 3. Trouble falling or staying asleep, or sleeping too much: not at all 4. Feeling tired or having little energy: not at all 5. Poor appetite or overeating: not at all 6. Feeling bad about yourself - or that you are a failure or have let yourself or your family down: not at all 7. Trouble concentrating on things, such as reading the newspaper or watching television: not at all 8. Moving or speaking so slowly that other people could have noticed. Or the opposite - being so fidgety or restless that you have been moving around a lot more than usual: not at all 9. Thoughts that you would be better off or of hurting yourself in some way: not at all Total score: 0 Depression Screening Interpretation: Negative Depression Screening Done: Yes Source: Developed by Drs. Kevin Braxton, Sandie Felipe, Williams Villalpando and colleagues, with an educational ean from [employer]. Thrive Questionnaire Date Thrive assessed: 07/20/23 I am a: Patient What is your living situation today?: I have a steady place to live Within the past 12 months, did the food you bought not last and you didn't have the money to get more?: Never true Within the past 12 months, did you worry whether your food would run out before you got money to buy more?: Never true Do you have trouble paying for medicines?: No Do you have trouble getting transportation to medical appointments?: No Do you have trouble paying your heating and electricity bill?: No Do you have trouble taking care of your child, family member or friend?: No Do you have trouble with day-to-day activities such as bathing, preparing meals, shopping, managing finances, etc.?: No Are you currently unemployed and looking for a job?: No Are you interested in more education?: No Currently or been in a relationship where the following occur: no concerns reported AUDIT C Alcohol Use Questionnaire (AUDIT-C) 1. How often do you have a drink containing alcohol?: Never Total Score: 0 KERMIT-7 AMB Questionnaire KERMIT-7 Date KERMIT - 7 assessed: 07/20/23 Feeling nervous, anxious, or on edge: 0 = Not at all Not being able to stop or control worryin = Not at all Worrying too much about different things: 0 = Not at all Trouble relaxin = Not at all Being so restless that it is hard to sit still: 0 = Not at all Becoming easily annoyed or irritable: 0 = Not at all Feeling afraid as if something awful might happen: 0 = Not at all Total KERMIT-7 score (0-4 normal; 5-9 mild; 10-14 moderate; 15-21 severe): 0 Source: Developed by Drs. Kevin Braxton, Sandie Felipe, Williams Villalpando and colleagues, with an educational ean from [employer]. Physical exam (Primary Care) Vital Signs: Last Vital Signs Pulse 76 07/20/23 09:09 BP 124/68 07/20/23 09:09 Pulse Ox 97 07/20/23 09:09 Oxygen Delivery Method Room Air 07/20/23 09:09 BMI result Body Mass Index 48.0 Tobacco/Smoking Status: Tobacco use Status Tobacco use date assessed 07/20/23 07/20/23 09:15 Patient Tobacco Use Status Never used Tobacco 07/20/23 09:06 e-Cigarette/Vaping Use Never Used 07/20/23 09:06 PHQ-9: PHQ-9 Score PHQ-9: Total score 0 07/20/23 09:06 Depression Screening Interpretation: Negative Thrive Assessment: Date of Thrive Assessment Date Thrive assessed 07/20/23 07/20/23 09:06 Currently or been in a relationship where the following occur: no concerns reported Const General: cooperative and healthy appearing Nutritional Appearance: well nourished Orientation/consciousness: patient oriented x3 Limitations: no limitations HENMT Head: Yes normal to inspection Eyes General: appearance normal, both eyes and all related structures Neck Neck: Yes normal visual inspection Chest Chest palpation & inspection: normal palpation of entire chest wall Resp Effort & Inspection: normal respiratory effort Neuro General: patient oriented x3 Assessment and Plan Assessment & Plan (1) Essential hypertension: Code(s): I10 - Essential (primary) hypertension Plan: I recorded the blood pressure again and it was 150/80. Losartan has been increased to 100 mg once a day. Patient was advised to check blood pressures and report the log to the [facility] navigator. 20 minutes was spent reviewing labs and images from [facility]. Coding Level of Care Code Est Pt Level 4 (88965) Diagnoses Essential hypertension I10
[2023-07-20 09:09] VITALS: BP 124/68; PULSE 76; O2SAT 97; BMI 48.0
== END 2023-07-20 10:12 | disposition home or self-care (01) ==
PROVIDERS: PCP Internal Medicine; Visit Provider Internal Medicine
DX: I10 Essential (primary) hypertension (principal)
CPT/HCPCS: 99214

== ENCOUNTER 2023-09-11 15:42 | Emergency (ER) | payer BC, SELFPAY ==
--- NOTE | ~2023-09-11 | CT_ITS ---
EXAMINATION: CT ABDOMEN AND PELVIS WITHOUT CONTRAST CLINICAL INFORMATION: RLQ pain. COMPARISON: 10/20/2015. TECHNIQUE: Multidetector volumetric imaging was performed from the superior aspect of the liver through the pubic symphysis without contrast per renal stone protocol. Sagittal and coronal reformatted images were obtained on the technologist workstation. This CT examination was performed using dose optimization techniques as appropriate, variously including the following: *Automated exposure control *Adjustment of mA and/or kV according to patient size (this includes techniques or standardized protocols for targeted exams where dose is matched to indication/reason for exam; i.e. extremities or head) *Use of iterative reconstruction technique DLP: 1076 mGy-cm. FINDINGS: LUNG BASES: Linear basilar atelectasis. Moderate-sized hiatal hernia. LIVER, GALLBLADDER, BILIARY TREE: The non-contrast liver is normal in size, shape, and attenuation. No focal hepatic lesion or biliary ductal dilatation is present. Gallbladder surgically absent PANCREAS: Unremarkable. SPLEEN: Unremarkable. ADRENAL GLANDS: Unremarkable. KIDNEYS AND URETERS: The kidneys are normal in size, shape, and attenuation. 2.8 cm low-attenuation anterior midpole right renal cyst. No further evaluation this would be needed. No hydronephrosis, hydroureter, or perinephric stranding. No calculi. BLADDER: Decompressed GASTROINTESTINAL TRACT: The small and large bowel are unremarkable. The appendix is unremarkable. ABDOMINAL WALL: No significant hernia is appreciated. LYMPHOVASCULAR STRUCTURES: Vascular calcification within the aorta iliac system. No bulky adenopathy. PELVIC VISCERA: Unremarkable. OSSEUS STRUCTURES: Unremarkable. CT/CT abdomen pelvis wo IV con IMPRESSION: Chronic appearing changes as described above. I do not appreciate any acute intra-abdominal process.
[2023-09-11 16:13] VITALS: BP 157/93; PULSE 98; RESP 18; O2SAT 97; BMI 49.0
--- NOTE | 2023-09-11 16:14 | ED.GENADULT ---
HPI - General Adult General Chief complaint: Abdominal Pain Stated complaint: right side abd and back pain Time Seen by Provider: 09/11/23 18:17 Source: patient Mode of arrival: ambulatory Limitations: no limitations History of Present Illness HPI narrative: 72 year old female with pmhx significant for GERD, hypothyroidism, HTN, and HDL presents to the emergency department today from Urgent Care for evaluation of right lower quadrant pain on waking this morning. Admits the pain is now radiating to her right flank. Pain comes and goes. She was evaluated at urgent care for this and sent to the ED for further evaluation due to concern for acute appendicitis. Denies fever, chills, headache, dizziness, decreased appetite, nausea, vomiting, diarrhea, constipation, dysuria, or hematuria. Denies known sick contacts. Denies recent travel. Related Data Previous Rx's Medication Instructions Recorded omeprazole 20 mg capsule,delayed 20 mg PO DAILY #90 caps 03/22/23 release simvastatin 10 mg tablet 10 mg PO BEDTIME #30 tabs 08/03/23 levothyroxine 75 mcg tablet 75 mcg PO DAILY #30 tabs 09/02/23 losartan 50 mg tablet 100 mg (2 x 50 mg) PO DAILY #30 09/11/23 tabs Allergies Allergy/AdvReac Type Severity Reaction Status Date / Time acetaminophen [From Percocet] Allergy Unknown Vomiting Verified 07/20/23 10:10 morphine [MORPHINE] Allergy Unknown PALPITATION Verified 07/20/23 10:10 oxycodone [From Percocet] Allergy Unknown Vomiting Verified 07/20/23 10:10 lisinopril AdvReac Intermediate Diarrhea Verified 07/20/23 10:10 Review of Systems Review of Systems: Constitutional: No fever, chills, fatigue, night sweats, weight changes ENT/Mouth: No ear pain, hearing loss, nasal congestion, sinus pain, rhinorrhea, sore throat Eyes: No eye pain, swelling, redness, vision changes, discharge Cardio: No chest pain, palpitations, MCKEON, orthopnea, peripheral edema Pulm: No SOB, cough, sputum, wheezing, dyspnea, hemoptysis GI: No nausea, vomiting, hematemesis, diarrhea, constipation, hematochezia, melena, +abdominal pain : No irregular bleeding, dysuria, frequency, urgency, hesitancy, hematuria, flank pain, urinary flow changes, urinary incontinence or retention MSK: +back pain, No neck pain, joint pain, myalgias Skin: No lesions, rashes Neuro: No weakness, numbness, paresthesias, LOC, dizziness, headache All other systems reviewed and are negative. [facility] Past Medical History Attestation statement: The following information was validated with the patient. Source: old records reviewed and nursing notes reviewed Medical History Essential hypertension Hypercholesterolemia Morbid obesity with BMI of 40.0-44.9, adult Bautista's cyst of knee High cholesterol Hypothyroidism Hypertension Surgical History History of tubal ligation History of cholecystectomy Family History Family History Mother No problems noted. Father No problems noted. Other Diabetes Social History Social History Housing: House Alcohol intake: never Patient Tobacco Use Status: Never used Tobacco e-Cigarette/Vaping Use: Never Used Second Hand Smoke Exposure: No Advance Directives: No Advance Directives Information Provided: No service: No Current occupational status: employed Cognitive needs: No Hearing needs: No Vision needs: Yes (glasses) Physical Exam ED Vital Signs: Vital Signs - 24 hr 09/11/23 16:13 Pulse Rate 98 Respiratory Rate 18 Blood Pressure 157/93 H Pulse Oximetry 97 Oxygen Delivery Method Room Air BMI result Body Mass Index 49.0 Hypertensive, otherwise wnl. Afebrile. Const General: cooperative, healthy appearing, comfortable, no acute distress, alert, awake and Physically active Orientation/consciousness: patient oriented x3 Limitations: no limitations HENMT Head: Yes normal to inspection, Yes normocephalic and Yes atraumatic Eyes General: appearance normal, both eyes and all related structures Conjunctivae: conjunctivae normal Sclerae: sclerae normal Pupils: Equal, round and reactive pupils present EOM: EOMs intact bilaterally Neck Neck: Yes normal visual inspection, Yes full ROM and Yes no lymphadenopathy Resp Effort & Inspection: normal respiratory effort Auscultation: clear to auscultation bilaterally Cardio Rate: regular rate Rhythm: regular rhythm GI Other: + abd soft, nondistended, ttp of RLQ without rebound or guarding. no palpable masses or organomegally. normoactive bs x4. Inspection: Yes normal to inspection General: Yes no CVA tenderness Back/Spine/Pelvis Back: no CVA tenderness Skin General skin exam: no rashes or lesions noted Neuro General: patient oriented x3 and gait normal Cranial nerves: Yes Equal, round and reactive pupils present Gait exam (Neuro): Normal gait present Course Course Course Narrative: 1821-- CBC without leukocytosis or left shift. No anemia, H&H stable. Chemistry without acute electrolyte abnormality requiring intervention. Normal renal function. Normal liver function. Urine without infection or blood. CT scan shows right renal cyst, chronic in nature. No renal calculi or ureteral calculi. No signs of obstructive uropathy. No signs of acute appendicitis. CT abdomen/pelvis essentially unremarkable. There is no clear etiology for patient's symptoms. I discussed these results with her and what we have ruled out in the ED. She expresses relief and states that her pain has been improving since arriving to the ED. Discussed worrisome signs and symptoms and when to return to the ED. Patient has remained stable throughout visit today. All questions answered at this time. Patient is agreeable with disposition and stable for discharge. Medical Decision Making Medical Decision Making [facility] Narrative: 72 year old female with pmhx significant for GERD, hypothyroidism, HTN, and HDL presents to the emergency department today from Urgent Care for evaluation of right lower quadrant pain on waking this morning. Patient noted to be hypertensive, vitals otherwise WNL. She is nontoxic-appearing and in no acute distress. On exam, right lower quadrant mildly tender to palpation. Abdomen soft, nondistended. No rebound tenderness or guarding. Normoactive bowel sounds x4. No CVAT bilaterally. Bladder not palpable. No organomegally. Differential includes msk strain, UTI, renal colic, renal stone. Lower suspicion for acute appendicitis, diverticulitis, cholecystitis, pancreatitis, acute abdomen. Plan for labs, UA, and imaging. Differential Diagnosis Differential Diagnoses: The differential diagnosis associated with the presentation includes as above Admission/Observation Not indicated. Lab Data [facility] Lab Attestation statement: I reviewed the patient's lab results. As above. 09/11/23 16:54 09/11/23 16:54 Labs: Lab Results 09/11/23 Range/Units 16:54 WBC 6.7 (4.8-10.8) X10*3/uL RBC 4.93 (4.20-5.50) X10*6/uL Hgb 13.3 (12.0-16.0) g/dl Hct 41.3 (37.0-47.0) % MCV 83.8 (80.0-98.0) fL MCH 27.0 (27.0-33.0) pg MCHC 32.2 (31.0-35.0) g/dl RDW 13.7 (11.0-16.0) % Plt Count 273 (160-400) X10*3/uL MPV 10.0 (9.4-12.3) fL Immature Gran % (Auto) 0.3 (0.0-0.4) % Neut % (Auto) 57.8 (45-73) % Lymph % (Auto) 31.3 (20-40) % [place] % (Auto) 8.5 (2-11) % Eos % (Auto) 1.5 (0-4) % Baso % (Auto) 0.6 (0-2) % Lymph # (Auto) 2.1 (1.2-4.9) X10*3/uL [place] # (Auto) 0.6 (0.1-1.2) X10*3/uL Eos # (Auto) 0.1 (0.0-0.4) X10*3/uL Baso # (Auto) 0.0 (0.0-0.2) X10*3/uL Abs Immat Gran (auto) 0.02 (0.00-0.03) X10*3/uL Absolute Neuts (auto) 3.9 (2.0-8.3) x10*3/uL Absolute Nucleated RBC 0.000 (0.0-0.012) X10*3/uL Nucleated RBC % (auto) 0.0 (0.0-0.2) /100WBC Sodium 140 (135-145) mmol/L Potassium 4.3 (3.3-5.1) mmol/L Chloride 107 (96-108) mmol/L Carbon Dioxide 24 (22-29) mmol/L Anion Gap 13 (12-20) BUN 13 (9-16) mg/dL Creatinine 0.71 (0.5-1.4) mg/dL Estim Creat Clear Calc 86.9 Estimated GFR > 60 Random Glucose 94 (60-115) mg/dL Calcium 9.7 (8.4-10.2) mg/dL Magnesium 2.3 (1.6-2.6) mg/dL Total Bilirubin 0.3 (0.0-1.0) mg/dL AST 19 (5-31) U/L ALT 15 (0-31) U/L Alkaline Phosphatase 93 (39-117) U/L Total Protein 8.1 H (6.5-8.0) g/dL Albumin 4.0 (3.5-5.0) g/dL Lipase 33 (8-78) U/L Urine Color Yellow Urine Appearance Clear Urine pH 5.5 (5.0-9.0) Ur Specific [place] 1.015 (1.005-1.025) Urine Protein Negative (Neg-Trace) mg/dL Urine Glucose (UA) Negative (Negative) mg/dL Urine Ketones Negative (Negative) mg/dL Urine Blood Negative (Negative) Urine Nitrite Negative (Negative) Ur Leukocyte Esterase Trace H (Negative) Urine RBC 0-2 (0-2) /HPF Urine WBC 0-5 (0-5) /HPF Ur Squamous Epith Cells 0-2 (0-2) /HPF Urine Bacteria None Seen (None Seen) Hyaline Casts 0-2 (0-2) /LPF Independent Interpretation I performed an independent interpretation of an: CT Scan Interpretation: I have personally reviewed CT scan and agree with radiologist's interpretation. Radiology Impression Discussion of test interpretation with radiology: I have reviewed the radiologist's reading. Radiologist Impression: CT abdomen pelvis wo IV con IMPRESSION: Chronic appearing changes as described above. I do not appreciate any acute intra-abdominal process. External Record Review External record reviewed: Inpatient record, Office record, Outpatient record, Prior outpatient labs, Prior outpatient radiology, Primary care record and Outside ED record Prescription Management I considered prescription management with: Pain Medication Discharge Plan Discharge Clinical Impression: Abdominal pain Patient Disposition: Home, Self-Care Instructions: Abdominal Pain (ED), Flank Pain (ED) Additional Instructions: Your labs today are reassuring. Your urine was negative for infection and blood. There is no clear etiology for your right lower abdominal pain. You may take tylenol and ibuprofen at home for pain relief. Please follow up with your PCP as needed. Return to the ED for new or worsening symptoms. Prescriptions: No Action omeprazole 20 mg capsule,delayed release(DR/EC) 20 mg PO DAILY Qty: 90 1RF simvastatin 10 mg tablet 10 mg PO BEDTIME Qty: 30 1RF levothyroxine 75 mcg tablet 75 mcg PO DAILY Qty: 30 1RF losartan 50 mg tablet 100 mg PO DAILY Qty: 30 1RF Rx Instructions: increased per Dr. V Discharge Date/Time: 09/11/23 18:22
[2023-09-11 17:01] LABS: MANUAL DIFF FLAG NO
[2023-09-11 17:03] LABS: Basophils Percent Auto 0.6 % (0-2); Eosinophils Absolute Auto 0.1 X10*3/uL (0.0-0.4); Eosinophils Percent Auto 1.5 % (0-4); Hematocrit 41.3 % (37.0-47.0); Hemoglobin 13.3 g/dl (12.0-16.0); Imm Gran Abs Auto 0.02 X10*3/uL (0.00-0.03); Imm Gran Pct Auto 0.3 % (0.0-0.4); Lymphocytes Absolute Auto 2.1 X10*3/uL (1.2-4.9); Lymphocytes Percent Auto 31.3 % (20-40); Mean Corpuscular HGB Conc 32.2 g/dl (31.0-35.0); Mean Corpuscular Volume 83.8 fL (80.0-98.0); Monocytes Absolute Auto 0.6 X10*3/uL (0.1-1.2); Monocytes Percent Auto 8.5 % (2-11); Neutrophils Absolute Auto 3.9 x10*3/uL (2.0-8.3); Neutrophils Percent Auto 57.8 % (45-73); Platelet Count 273 X10*3/uL (160-400); Red Blood Count 4.93 X10*6/uL (4.20-5.50); Red Cell Distribution Width 13.7 % (11.0-16.0); White Blood Count 6.7 X10*3/uL (4.8-10.8)
[2023-09-11 17:06] LABS: Appearance Urine Clear; Color Urine Yellow; Glucose Urine UA Negative (Negative); Leukocyte Esterase Urine Trace (Negative); Nitrite Urine Negative (Negative); PH 5.5 (5.0-9.0); Specific Gravity - Urine 1.015 (1.005-1.025); UMIC TRIGGER UACC YES; Urine Blood Negative (Negative); Urine Ketones Negative (Negative); Urine Protein Negative (Neg-Trace)
[2023-09-11 17:11] LABS: Bacteria Urine None Seen (None Seen); Hyaline Casts Urine 0-2 /LPF (0-2); RBC Urine 0-2 /HPF (0-2); Squamous Epithelial Cell Urine 0-2 /HPF (0-2); WBC Urine 0-5 /HPF (0-5)
[2023-09-11 17:24] LABS: Alanine Aminotransferase 15 U/L (0-31); Alkaline Phosphatase 93 U/L (39-117); Anion Gap 13 (12-20); Aspartate Amino Transferase 19 U/L (5-31); Bilirubin Total 0.3 mg/dL (0.0-1.0); Blood Urea Nitrogen 13 mg/dL (9-16); Calcium 9.7 mg/dL (8.4-10.2); Carbon Dioxide 24 mmol/L (22-29); Chloride 107 mmol/L (96-108); Creatinine Clr Calc Pharmacy 86.9; Estimated Glomerular Filt Rate > 60; Glucose Random 94 mg/dL (60-115); Lipase 33 U/L (8-78); Magnesium 2.3 mg/dL (1.6-2.6); Potassium 4.3 mmol/L (3.3-5.1); Sodium 140 mmol/L (135-145); Total Protein 8.1 g/dL (6.5-8.0)
== END 2023-09-11 18:22 | disposition home or self-care (01) ==
PROVIDERS: Physician Assistant Medical; Emergency Provider Emergency Medicine Emergency Medical Services; PCP Internal Medicine
DX: R10.31 Right lower quadrant pain (principal); I10 Essential (primary) hypertension
CPT/HCPCS: 36415; 74176; 80053; 81001; 81003; 83690; 83735; 85025; 99282; 99284

== ENCOUNTER 2023-09-15 11:31 | Emergency (ER) | payer BC, SELFPAY ==
[2023-09-15 11:45] VITALS: BP 167/90; PULSE 106; RESP 20; TEMP 35.9; O2SAT 98; BMI 46.6
--- NOTE | 2023-09-15 11:46 | ED.GENADULT ---
HPI - General Adult General Chief complaint: Skin/Abscess/Foreign Body Stated complaint: back pain, rash on back ? Time Seen by Provider: 09/15/23 11:45 Source: patient, RN notes reviewed and old records reviewed Mode of arrival: ambulatory Limitations: no limitations History of Present Illness HPI narrative: 72-year-old female presents for evaluation of a rash to her right lower back. She developed right lower back pain 4 days ago She states that she had a big workup that did not find anything concerning. Patient states that she checked the mirror today and noticed that she has a rash to her right lower back she describes the pain as sharp and burning Related Data Previous Rx's Medication Instructions Recorded omeprazole 20 mg capsule,delayed 20 mg PO DAILY #90 caps 03/22/23 release simvastatin 10 mg tablet 10 mg PO BEDTIME #30 tabs 08/03/23 levothyroxine 75 mcg tablet 75 mcg PO DAILY #30 tabs 09/02/23 losartan 50 mg tablet 100 mg (2 x 50 mg) PO DAILY #30 09/11/23 tabs gabapentin 300 mg capsule 300 mg PO DAILY #20 caps 09/15/23 prednisone 20 mg tablet 40 mg (2 x 20 mg) PO DAILY #10 tabs 09/15/23 valacyclovir 1 gram tablet 1,000 mg PO TID #21 tabs 09/15/23 Allergies Allergy/AdvReac Type Severity Reaction Status Date / Time acetaminophen [From Percocet] Allergy Unknown Vomiting Verified 07/20/23 10:10 morphine [MORPHINE] Allergy Unknown PALPITATION Verified 07/20/23 10:10 oxycodone [From Percocet] Allergy Unknown Vomiting Verified 07/20/23 10:10 lisinopril AdvReac Intermediate Diarrhea Verified 07/20/23 10:10 Review of Systems Constitutional: Constitutional: Denies chills and Denies fever(s) Musculoskeletal: Musculoskeletal: Reports back pain Integumentary/Breasts: Skin/Breast: Reports rash PMFSH Past Medical History Medical History Essential hypertension Hypercholesterolemia Morbid obesity with BMI of 40.0-44.9, adult Bautista's cyst of knee High cholesterol Hypothyroidism Hypertension Surgical History History of tubal ligation History of cholecystectomy Family History Family History Mother No problems noted. Father No problems noted. Other Diabetes Social History Social History Housing: House Alcohol intake: never Patient Tobacco Use Status: Never used Tobacco e-Cigarette/Vaping Use: Never Used Second Hand Smoke Exposure: No Advance Directives: No Advance Directives Information Provided: Yes service: No Current occupational status: employed Cognitive needs: No Hearing needs: No Vision needs: Yes (glasses) Physical Exam ED Vital Signs: Vital Signs - 24 hr 09/15/23 11:45 Temperature 96.7 F L Pulse Rate 106 H Respiratory Rate 20 Blood Pressure 167/90 H Pulse Oximetry 98 Oxygen Delivery Method Room Air BMI result Body Mass Index 46.6 Const General: healthy appearing, comfortable, no acute distress, alert and awake Nutritional Appearance: well nourished Orientation/consciousness: patient oriented x3 HENMT Head: Yes normocephalic and Yes atraumatic Eyes Eyelids: Yes eyelids normal Conjunctivae: conjunctivae normal Sclerae: sclerae normal Corneas: corneas normal Pupils: Equal, round and reactive pupils present EOM: EOMs intact bilaterally Neck Neck: Yes full ROM Resp Effort & Inspection: normal respiratory effort, able to speak in complete sentences and not labored GI Inspection: No distended Palpation (GI): Soft to palpation, not firm, nontender, no guarding and not rigid Skin Other: Patient has a rash to the right lower back that is erythematous, vesicular. It does not cross midline. General skin exam: elasticity normal Neuro General: patient oriented x3 Cranial nerves: Yes Equal, round and reactive pupils present and Yes Bilaterally intact EOM present Cognition (Neuro): normal cognition Extrem Other: Moving all extremities well without any obvious deformities Medical Decision Making Medical Decision Making MDM Narrative: Patient has a classic shingles rash. She will be treated with prednisone, valacyclovir and gabapentin for neuropathic pain. Differential Diagnosis Differential Diagnoses: The differential diagnosis associated with the presentation includes Herpes zoster Shingles Acute rash Dermatitis Discharge Plan Discharge Clinical Impression: Shingles rash Patient Disposition: Home, Self-Care Instructions: Shingles (ED) Additional Instructions: Take the prednisone, valacyclovir and gabapentin as prescribed Take gabapentin 1 pill today, you may increase to 2 pills tomorrow and up to 3 pills as a max dose on the 3rd day if your pain is not well controlled You should avoid women and very young children as this rash can be contagious Prescriptions: New prednisone 20 mg tablet 40 mg PO DAILY Qty: 10 0RF valacyclovir 1 gram tablet 1,000 mg PO TID Qty: 21 0RF gabapentin 300 mg capsule 300 mg PO DAILY Qty: 20 0RF No Action omeprazole 20 mg capsule,delayed release(DR/EC) 20 mg PO DAILY Qty: 90 1RF simvastatin 10 mg tablet 10 mg PO BEDTIME Qty: 30 1RF levothyroxine 75 mcg tablet 75 mcg PO DAILY Qty: 30 1RF losartan 50 mg tablet 100 mg PO DAILY Qty: 30 1RF Rx Instructions: increased per Dr. Jaimes Interventions: ED Discharge Assessment Last Done: 09/15/23 12:09
== END 2023-09-15 12:10 | disposition home or self-care (01) ==
PROVIDERS: Emergency Provider Emergency Medicine Emergency Medical Services; PCP Internal Medicine
DX: B02.9 Zoster without complications (principal); I10 Essential (primary) hypertension
CPT/HCPCS: 99282; 99283

== ENCOUNTER 2023-09-27 13:50 | Outpatient (AMB) | payer BC, SELFPAY ==
--- NOTE | 2023-09-27 13:50 | MHC.PC.OV ---
Vital Signs 09/27/23 13:52 Height 5 ft 2 in Weight 256 lb 2 oz BMI 46.8 BP 130/74 Blood Pressure Location Lt brachial Position Sitting Pulse 104 H Pulse Source Pulse Oximeter Pulse Oximetry (%) 97 Oxygen Delivery Method Room Air Intake Visit Reasons: [facility] [place], shingles Intake Note: Patient is here to follow-up after a [place] [facility] [place]. Patient is here to follow up on Shingles. Soft Crab Shedder Required: No Charge Poster: Not Required per policy Accompanied by: Self / Same As Patient Allergies acetaminophen [From Percocet] Allergy (Unknown, Verified 09/27/23 14:28) Vomiting morphine [MORPHINE] Allergy (Unknown, Verified 09/27/23 14:28) PALPITATION oxycodone [From Percocet] Allergy (Unknown, Verified 09/27/23 14:28) Vomiting lisinopril Adverse Reaction (Intermediate, Verified 09/27/23 14:28) Diarrhea Medication List - Last Reconciled 09/27/23 by Steven Bhat MD levothyroxine 75 mcg PO DAILY losartan 100 mg (2 x 50 mg) PO DAILY omeprazole 20 mg PO DAILY simvastatin 10 mg PO BEDTIME valacyclovir 1,000 mg PO TID Tobacco use date assessed: 09/27/23 Fall risk assessment: No Falls in past year Last assessed Fall Risk: 09/27/23 Dental Screening Dental Screen Date: 09/27/23 Did you have a dental visit in the last 12 months?: No Did you have a dental problem in the last 6 months where you did not have access to dental care?: No Was dental information given to patient?: Patient has dentist HPI [facility] [place], [place] HPI Details 72-year-old female presents to the office for a follow-up visit from the emergency room. She was in the emergency room and was diagnosed with shingles. She was discharged home on valacyclovir, Neurontin and prednisone. Patient reports she is unable to tolerate the Neurontin due to dizziness. She tried the medication on 2 separate occasions and symptoms recurred. She is in [id number] discomfort and is taking Tylenol. Compliant with other medications. [facility] Medical History Essential hypertension Hypercholesterolemia Morbid obesity with BMI of 40.0-44.9, adult Bautista's cyst of knee High cholesterol Hypothyroidism Hypertension Surgical History History of tubal ligation History of cholecystectomy Family History Mother No problems noted. Father No problems noted. Other Diabetes Social History Housing: House Alcohol intake: never Patient Tobacco Use Status: Never used Tobacco e-Cigarette/Vaping Use: Never Used Second Hand Smoke Exposure: No service: No Current occupational status: employed Cognitive needs: No Hearing needs: No Vision needs: Yes (glasses) Questionnaire Thrive Questionnaire Date Thrive assessed: 07/20/23 KERMIT-7 AMB Questionnaire KERMIT-7 Date KERMIT - 7 assessed: 07/20/23 Source: Developed by Drs. Kevin Braxton, Sandie Felipe, Williams Villalpando and colleagues, with an educational ean from [email or web address]. Physical exam (Primary Care) Vital Signs: Last Vital Signs Pulse 104 H 09/27/23 13:52 BP 130/74 09/27/23 13:52 Pulse Ox 97 09/27/23 13:52 Oxygen Delivery Method Room Air 09/27/23 13:52 Care Plan Goal for BP management: Blood pressure is stable. Continue current medications. BMI result Body Mass Index 46.8 Tobacco/Smoking Status: Tobacco use Status Tobacco use date assessed 09/27/23 09/27/23 13:58 Patient Tobacco Use Status Never used Tobacco 09/27/23 13:58 e-Cigarette/Vaping Use Never Used 09/27/23 13:58 Thrive Assessment: Date of Thrive Assessment Date Thrive assessed 07/20/23 09/27/23 13:58 Const General: cooperative and healthy appearing Nutritional Appearance: well nourished Orientation/consciousness: patient oriented x3 Limitations: no limitations HENMT Head: Yes normal to inspection Eyes General: appearance normal, both eyes and all related structures Neck Neck: Yes normal visual inspection Chest Chest palpation & inspection: normal palpation of entire chest wall Resp Effort & Inspection: normal respiratory effort Skin Other: Right back and gluteal area: Healing, vesicular erythematous rash. The rash has lesions in various stages of healing. No new lesions. Neuro General: patient oriented x3 Assessment and Plan Assessment & Plan (1) Herpes zoster: Code(s): B02.9 - Zoster without complications Plan: Fortunately, patient is not having much discomfort. Symptoms are well controlled with Tylenol. If symptoms worsen or post herpetic neuralgia develops, Lyrica or Cymbalta will be tried. Coding Level of Care Code Est Pt Level 4 (41835) Diagnoses Herpes zoster B02.9
[2023-09-27 13:52] VITALS: BP 130/74; PULSE 104; O2SAT 97; BMI 46.8
== END 2023-09-27 14:24 | disposition home or self-care (01) ==
PROVIDERS: PCP Internal Medicine; Visit Provider Internal Medicine
DX: B02.9 Zoster without complications (principal)
CPT/HCPCS: 99214

== ENCOUNTER 2023-09-28 08:04 | Outpatient (AMB) | payer BC, SELFPAY ==
[2023-09-28 08:15] VITALS: BP 132/72; PULSE 90; TEMP 36.7; O2SAT 97; BMI 46.8
--- NOTE | 2023-09-28 08:16 | AM.OFFWIN_ITS ---
Intake Vital Signs 09/28/23 08:15 Height 5 ft 2 in Weight 256 lb BMI 46.8 BP 132/72 Blood Pressure Location Lt brachial Position Sitting Pulse 90 Pulse Source Pulse Oximeter Temp 98.0 F Temp Source Oral Pulse Oximetry (%) 97 Oxygen Delivery Method Room Air Intake Visit Reasons: EP Severe stomach pain (Lobby) Intake Note: pt is here for c/o stomach pain, possible uti Patient Tobacco Use Status: Never used Tobacco Allergies acetaminophen [From Percocet] Allergy (Unknown, Verified 09/28/23 08:16) Vomiting morphine [MORPHINE] Allergy (Unknown, Verified 09/28/23 08:16) PALPITATION oxycodone [From Percocet] Allergy (Unknown, Verified 09/28/23 08:16) Vomiting lisinopril Adverse Reaction (Intermediate, Verified 09/28/23 08:16) Diarrhea HPI HPI Comments History of Present Illness Details 72 y/o female who presents to walk in [facility] with c/o Abdominal pain that started this morning. Pt was seen and evaluated at [facility] 08/2023 for similar concern and CT-Scan Abdomen was WNL. C/o urinary frequency but denies dysuria. Denies nausea, vomiting, diarrhea or constipation. Denies fevers or chills. Pt is currently recovering from Shingles. [facility] Medical History Essential hypertension Hypercholesterolemia Morbid obesity with BMI of 40.0-44.9, adult Bautista's cyst of knee High cholesterol Hypothyroidism Hypertension Surgical History History of tubal ligation History of cholecystectomy Family History Mother No problems noted. Father No problems noted. Other Diabetes Social History Housing: House Alcohol intake: never Patient Tobacco Use Status: Never used Tobacco e-Cigarette/Vaping Use: Never Used Second Hand Smoke Exposure: No service: No Current occupational status: employed Cognitive needs: No Hearing needs: No Vision needs: Yes (glasses) Review of Systems Const All systems reviewed & are unremarkable except as noted in HPI and below Physical Exam Vital Signs: Last Vital Signs Temp 98.0 F 09/28/23 08:15 Pulse 90 09/28/23 08:15 BP 132/72 09/28/23 08:15 Pulse Ox 97 09/28/23 08:15 Oxygen Delivery Method Room Air 09/28/23 08:15 BMI result Body Mass Index 46.8 Const General: comfortable and no acute distress Nutritional Appearance: obese morbidly obese Orientation/consciousness: patient oriented x3 GI Inspection: Yes normal to inspection, No Abdominal wall edema, No distended and Yes Abdominal panniculus present Palpation (GI): Soft to palpation, Tenderness to palpation present (GI) in the RUQ, no guarding, not rigid, No hepatosplenomegaly present, no hernias and no masses Auscultation: normal bowel sounds Neuro General: patient oriented x3, gait normal and moves all extremities Psych Speech and movement: Clear speech present Attitude: cooperative Assessment & Plan Assessment & Plan (1) Right upper quadrant abdominal pain: Code(s): R10.11 - Right upper quadrant pain Plan: - No clear etiology at this time - Abd CT-Scan WNL - POCT U/A negative - Continue using Heat Pad and Acetaminophen for relief. Plan - No clear etiology at this time - Abd CT-Scan WNL - POCT U/A negative - Continue using Heat Pad and Acetaminophen for relief. Coding Level of Care Code Est Pt Level 3 (25442) Diagnoses Right upper quadrant abdominal pain R10.11 Time Spent (min) 15
== END 2023-09-28 09:14 | disposition home or self-care (01) ==
PROVIDERS: PCP Internal Medicine; Visit Provider Nurse Practitioner Family
DX: R10.11 Right upper quadrant pain (principal)
CPT/HCPCS: 81003; 99213

== ENCOUNTER 2023-11-01 13:54 | Outpatient (AMB) | payer BC, SELFPAY ==
--- NOTE | 2023-11-01 13:58 | MHC.PC.OV ---
Vital Signs 11/01/23 13:59 Height 5 ft 2 in Weight 259 lb BMI 47.4 BP 110/70 Blood Pressure Location Lt brachial Position Sitting Pulse 95 Pulse Source Pulse Oximeter Pulse Oximetry (%) 96 Oxygen Delivery Method Room Air Intake Visit Reasons: Hypertension Intake Note: Patient is here to follow up on HTN. Swage Tender Required: No Analytics Consultant: Not Required per policy Accompanied by: Self / Same As Patient Allergies acetaminophen [From Percocet] Allergy (Unknown, Verified 11/01/23 13:58) Vomiting morphine [MORPHINE] Allergy (Unknown, Verified 11/01/23 13:58) PALPITATION oxycodone [From Percocet] Allergy (Unknown, Verified 11/01/23 13:58) Vomiting lisinopril Adverse Reaction (Intermediate, Verified 11/01/23 13:58) Diarrhea Tobacco use date assessed: 11/01/23 Dental Screening Dental Screen Date: 09/27/23 HPI Hypertension HPI Details 72-year-old female presents to the office to discuss her chronic medical conditions. Patient continues to have mild post herpetic neuralgia. The area over the healed herpetic lesions continues to burn. Compliant with other medications and reporting no side effects. Able to function and do all activities of daily living. She would like to reduce her omeprazole to every other day. [facility] Medical History (Updated 11/01/23 @ 14:40 by Steven Bhat MD) Post herpetic neuralgia Essential hypertension Hypercholesterolemia Morbid obesity with BMI of 40.0-44.9, adult Bautista's cyst of knee High cholesterol Hypothyroidism Hypertension Surgical History History of tubal ligation History of cholecystectomy Family History Mother No problems noted. Father No problems noted. Other Diabetes Social History Housing: House Alcohol intake: never Patient Tobacco Use Status: Never used Tobacco e-Cigarette/Vaping Use: Never Used Second Hand Smoke Exposure: No service: No Current occupational status: employed Cognitive needs: No Hearing needs: No Vision needs: Yes (glasses) Questionnaire Thrive Questionnaire Date Thrive assessed: 07/20/23 KERMIT-7 AMB Questionnaire KERMIT-7 Date KERMIT - 7 assessed: 07/20/23 Source: Developed by Drs. Kevin Braxton, Sandie Felipe, Williams Villalpando and colleagues, with an educational ean from [employer]. Physical exam (Primary Care) Vital Signs: Last Vital Signs Pulse 95 11/01/23 13:59 BP 110/70 11/01/23 13:59 Pulse Ox 96 11/01/23 13:59 Oxygen Delivery Method Room Air 11/01/23 13:59 Care Plan Goal for BP management: Blood pressure is in range. BMI result Body Mass Index 47.4 Tobacco/Smoking Status: Tobacco use Status Tobacco use date assessed 11/01/23 11/01/23 14:03 Patient Tobacco Use Status Never used Tobacco 11/01/23 14:03 e-Cigarette/Vaping Use Never Used 11/01/23 14:03 Thrive Assessment: Date of Thrive Assessment Date Thrive assessed 07/20/23 11/01/23 14:03 Const General: cooperative and healthy appearing Nutritional Appearance: well nourished Orientation/consciousness: patient oriented x3 Limitations: no limitations HENMT Head: Yes normal to inspection Eyes General: appearance normal, both eyes and all related structures Neck Neck: Yes normal visual inspection Chest Chest palpation & inspection: normal palpation of entire chest wall Resp Effort & Inspection: normal respiratory effort Neuro General: patient oriented x3 Assessment and Plan Assessment & Plan (1) Post herpetic neuralgia: Code(s): B02.29 - Other postherpetic nervous system involvement Plan: Condition is stable. Patient prefers not to be on Neurontin. (2) Hypertension: Code(s): I10 - Essential (primary) hypertension Plan: Blood pressure is stable. Continue medications at same dosage. Blood work has been reviewed. Coding Level of Care Code Est Pt Level 4 (86919) Diagnoses Post herpetic neuralgia B02.29 Hypertension I10
[2023-11-01 13:59] VITALS: BP 110/70; PULSE 95; O2SAT 96; BMI 47.4
== END 2023-11-01 14:41 | disposition home or self-care (01) ==
PROVIDERS: PCP Internal Medicine; Visit Provider Internal Medicine
DX: B02.29 Other postherpetic nervous system involvement (principal); I10 Essential (primary) hypertension
CPT/HCPCS: 99214

== ENCOUNTER 2023-11-18 07:53 | Outpatient (REF) | payer BC, SELFPAY | END 2023-11-18 07:54 | disposition home or self-care (01) | LOC: HO.MAMMO 07:53 | PROVIDERS: PCP Internal Medicine; Visit Provider Internal Medicine | DX: Z12.31 Encounter for screening mammogram for malignant neoplasm of breast (principal) | CPT/HCPCS: 77063; 77067 ==

== ENCOUNTER → 2023-11-18 08:15 | Outpatient (BNV) | payer BC, SELFPAY | PROVIDERS: PCP Internal Medicine; Visit Provider Radiology Diagnostic Radiology | DX: Z12.31 Encounter for screening mammogram for malignant neoplasm of breast (principal) | CPT/HCPCS: 77063; 77067 ==

== ENCOUNTER 2024-01-31 08:35 | Outpatient (AMB) | payer BC, SELFPAY ==
--- NOTE | 2024-01-31 08:59 | A.OFFPC_ITS ---
Vital Signs 01/31/24 09:01 Height 5 ft 2 in Weight 254 lb 8 oz BMI 46.5 BP 134/72 Blood Pressure Location Rt brachial Position Sitting Pulse 86 Pulse Source Pulse Oximeter Pulse Oximetry (%) 96 Oxygen Delivery Method Room Air Intake Visit Reasons: left arm pain- see comments Intake Note: Patient is here to follow up on Left arm pain ongoing for a week. Complain of back pain. Glass Robot Operator Required: No Valuation Consultant: Not Required per policy Accompanied by: Self / Same As Patient Allergies acetaminophen [From Percocet] Allergy (Unknown, Verified 01/31/24 09:36) Vomiting morphine [MORPHINE] Allergy (Unknown, Verified 01/31/24 09:36) PALPITATION oxycodone [From Percocet] Allergy (Unknown, Verified 01/31/24 09:36) Vomiting lisinopril Adverse Reaction (Intermediate, Verified 01/31/24 09:36) Diarrhea Medication List - Last Reconciled 01/31/24 by Steven Bhat MD levothyroxine 75 mcg PO DAILY losartan 100 mg PO DAILY omeprazole 20 mg PO DAILY simvastatin 10 mg PO BEDTIME valacyclovir 1,000 mg PO TID Tobacco use date assessed: 01/31/24 Fall risk assessment: No Falls in past year Last assessed Fall Risk: 01/31/24 Dental Screening Dental Screen Date: 09/27/23 HPI left arm pain- see comments HPI Details 73-year-old female presents [facility] for a sick [facility]. For the past week, patient complains of symptoms of left shoulder pain. No history of prior fall or trauma. Pain started slowly in the left shoulder progressing up to the forearm. Symptoms were worse on lifting the arm. Patient was seen at a local urgent care facility. An EKG was done which according to the patient was unremarkable. She also had an x-ray done at [facility]. She does not know the results. Symptoms were subsiding when they started to get worse yesterday. Again the pain is limited to the same area. Continuing to work. [facility] Medical History Post herpetic neuralgia Essential hypertension Hypercholesterolemia Morbid obesity with BMI of 40.0-44.9, adult Bautista's cyst of knee High cholesterol Hypothyroidism Hypertension Surgical History History of tubal ligation History of cholecystectomy Family History Mother No problems noted. Father No problems noted. Other Diabetes Social History Housing: House Alcohol intake: never Patient Tobacco Use Status: Never used Tobacco e-Cigarette/Vaping Use: Never Used Second Hand Smoke Exposure: No service: No Current occupational status: employed Cognitive needs: No Hearing needs: No Vision needs: Yes (glasses) Questionnaire Thrive Questionnaire Date Thrive assessed: 07/20/23 KERMIT-7 AMB Questionnaire KERMIT-7 Date KERMIT - 7 assessed: 07/20/23 Source: Developed by Drs. Kevin Braxton, Sandie Felipe, Williams Villalpando and colleagues, with an educational ean from [employer]. Physical exam (Primary Care) Vital Signs: Last Vital Signs Pulse 86 01/31/24 09:01 BP 134/72 01/31/24 09:01 Pulse Ox 96 01/31/24 09:01 Oxygen Delivery Method Room Air 01/31/24 09:01 Care Plan Goal for BP management: Blood pressure is in range. BMI result Body Mass Index 46.5 Tobacco/Smoking Status: Tobacco use Status Tobacco use date assessed 01/31/24 01/31/24 09:05 Patient Tobacco Use Status Never used Tobacco 01/31/24 09:05 e-Cigarette/Vaping Use Never Used 01/31/24 09:05 Thrive Assessment: Date of Thrive Assessment Date Thrive assessed 07/20/23 01/31/24 09:05 Const General: cooperative and healthy appearing Nutritional Appearance: well nourished Orientation/consciousness: patient oriented x3 Limitations: no limitations HENMT Head: Yes normal to inspection Eyes General: appearance normal, both eyes and all related structures Neck Neck: Yes normal visual inspection Chest Chest palpation & inspection: normal palpation of entire chest wall Resp Effort & Inspection: normal respiratory effort Neuro General: patient oriented x3 Extrem Other: Left shoulder: No joint tenderness. Full range of motion including flexion, extension, adduction and abduction. Full internal and external rotation. Office Procedures EKG Details: Normal sinus rhythm. [id number], Complete Assessment and Plan Assessment & Plan (1) Left shoulder pain: Code(s): M25.512 - Pain in left shoulder Plan: EKG reviewed. Plan Most likely symptoms are musculoskeletal in origin. Reassurance. Patient can take [id number] anti-inflammatories. Orders: Orders AMB EKG-In Office Today M25.512 - Pain in left shoulder Coding Level of Care Code Est Pt Level 4 (62924) Complex EM visit Add On G2211 Diagnoses Left shoulder pain M25.512 CPT Codes EKG - CPT: 75335-[id number], Complete ([id number])
[2024-01-31 09:01] VITALS: BP 134/72; PULSE 86; O2SAT 96; BMI 46.5
== END 2024-01-31 09:52 | disposition home or self-care (01) ==
PROVIDERS: PCP Internal Medicine; Visit Provider Internal Medicine
DX: M25.512 Pain in left shoulder (principal)
CPT/HCPCS: 93000; 99214

== ENCOUNTER 2024-02-06 09:34 | Outpatient (AMB) | payer BC, SELFPAY ==
--- NOTE | 2024-02-06 09:37 | A.OFFPC_ITS ---
Vital Signs 02/06/24 09:38 Height 5 ft 2 in Weight 256 lb 4 oz BMI 46.9 BP 142/68 H Blood Pressure Location Lt brachial Position Sitting Pulse 92 Pulse Source Pulse Oximeter Pulse Oximetry (%) 96 Oxygen Delivery Method Room Air Intake Visit Reasons: 6m f/u Intake Note: Patient is here to follow up on GERD, HTN, Hypercholesterolemia. Butadiene Compressor Operator Required: No Inverted Block Operator: Not Required per policy Accompanied by: Self / Same As Patient Allergies acetaminophen [From Percocet] Allergy (Unknown, Verified 02/06/24 10:23) Vomiting morphine [MORPHINE] Allergy (Unknown, Verified 02/06/24 10:23) PALPITATION oxycodone [From Percocet] Allergy (Unknown, Verified 02/06/24 10:23) Vomiting lisinopril Adverse Reaction (Intermediate, Verified 02/06/24 10:23) Diarrhea Medication List - Last Reconciled 02/06/24 by Steven Bhat MD levothyroxine 75 mcg PO DAILY losartan 100 mg PO DAILY omeprazole 20 mg PO DAILY simvastatin 10 mg PO BEDTIME valacyclovir 1,000 mg PO TID Tobacco use date assessed: 02/06/24 Fall risk assessment: No Falls in past year Last assessed Fall Risk: 02/06/24 Dental Screening Dental Screen Date: 09/27/23 HPI 6m f/u HPI Details 73-year-old female presents to the [facility] to discuss her medical condition. Patient was last seen for left shoulder pain. After a full workup including EKG, it was presumed to be muscular. Patient has improved after she rested her shoulder. Improved range of motion in the arm. Able to lift weight and do activities with the left upper extremity. Compliant with medications. Able to function. Drives at night. Lives with family. [facility] Medical History Post herpetic neuralgia Essential hypertension Hypercholesterolemia Morbid obesity with BMI of 40.0-44.9, adult Bautista's cyst of knee High cholesterol Hypothyroidism Hypertension Surgical History History of tubal ligation History of cholecystectomy Family History Mother No problems noted. Father No problems noted. Other Diabetes Social History Housing: House Alcohol intake: never Patient Tobacco Use Status: Never used Tobacco e-Cigarette/Vaping Use: Never Used Second Hand Smoke Exposure: No service: No Current occupational status: employed Cognitive needs: No Hearing needs: No Vision needs: Yes (glasses) Questionnaire Thrive Questionnaire Date Thrive assessed: 07/20/23 KERMIT-7 AMB Questionnaire KERMIT-7 Date KERMIT - 7 assessed: 07/20/23 Source: Developed by Drs. Kevin Braxton, Sandie Felipe, Williams Villalpando and colleagues, with an educational ean from [employer]. Physical exam (Primary Care) Vital Signs: Last Vital Signs Pulse 92 02/06/24 09:38 BP 142/68 H 02/06/24 09:38 Pulse Ox 96 02/06/24 09:38 Oxygen Delivery Method Room Air 02/06/24 09:38 Care Plan Goal for BP management: Blood pressure is in range. Continue current medications. BMI result Body Mass Index 46.9 BMI Assessment/Plan discussion: High (1 lb per week weight loss suggested.) BMI High, discussed plan: lifestyle, weight reduction and dietary Tobacco/Smoking Status: Tobacco use Status Tobacco use date assessed 02/06/24 02/06/24 09:44 Patient Tobacco Use Status Never used Tobacco 02/06/24 09:44 e-Cigarette/Vaping Use Never Used 02/06/24 09:44 Thrive Assessment: Date of Thrive Assessment Date Thrive assessed 07/20/23 02/06/24 09:44 Advance Care Planning discussion: Exists, not on file Date of discussion: 02/06/24 Who was present: Patient Forms completed: Health Care Proxy Const General: cooperative and healthy appearing Nutritional Appearance: well nourished Orientation/consciousness: patient oriented x3 Limitations: no limitations HENMT Head: Yes normal to inspection Eyes General: appearance normal, both eyes and all related structures Neck Neck: Yes normal visual inspection Chest Chest palpation & inspection: normal palpation of entire chest wall Resp Effort & Inspection: normal respiratory effort Neuro General: patient oriented x3 Assessment and Plan Assessment & Plan (1) Morbid obesity with BMI of 40.0-44.9, adult: Code(s): E66.01 - Morbid (severe) obesity due to excess calories; Z68.41 - Body mass index [BMI] 40.0-44.9, adult Plan: Counseling on the importance of diet and exercise done. (2) Hypercholesterolemia: Code(s): E78.00 - Pure hypercholesterolemia, unspecified Plan: LDL is in range. Continue medications at same dosage. (3) Essential hypertension: Code(s): I10 - Essential (primary) hypertension Plan: Blood pressure is in range. Continue medications at same dosage. (4) Post herpetic neuralgia: Code(s): B02.29 - Other postherpetic nervous system involvement Plan: This condition has resolved. (5) Left shoulder strain: Code(s): S46.912A - Strain of unspecified muscle, fascia and tendon at shoulder and upper arm level, left arm, initial encounter Plan: Significant improvement compared to last office visit. Improved range of motion. No further workup necessary. Coding Level of Care Code Est Pt Level 4 (02598) Diagnoses Morbid obesity with BMI of 40.0-44.9, adult E66.01; Z68.41 Hypercholesterolemia E78.00 Essential hypertension I10 Post herpetic neuralgia B02.29 Left shoulder strain S46.912A Additional Codes Vital Signs *Quality* - Advance Care Planning discussion: Exists, not on file ([id number])
[2024-02-06 09:38] VITALS: BP 142/68; PULSE 92; O2SAT 96; BMI 46.9
== END 2024-02-06 10:24 | disposition home or self-care (01) ==
PROVIDERS: PCP Internal Medicine; Visit Provider Internal Medicine
DX: E66.01 Morbid (severe) obesity due to excess calories (principal); Z68.41 Body mass index [BMI] 40.0-44.9, adult; E78.00 Pure hypercholesterolemia, unspecified; I10 Essential (primary) hypertension; B02.29 Other postherpetic nervous system involvement; S46.912A Strain of unspecified muscle, fascia and tendon at shoulder and upper arm level, left arm, initial encounter; Z00.00 Encounter for general adult medical examination without abnormal findings
CPT/HCPCS: 1123F; 99214

== ENCOUNTER 2024-02-10 07:42 | Outpatient (REF) | payer BC, SELFPAY ==
[2024-02-10 08:10] LABS: Hematocrit 39.7 % (37.0-47.0); Hemoglobin 12.5 g/dl (12.0-16.0); Mean Corpuscular HGB Conc 31.5 g/dl (31.0-35.0); Mean Corpuscular Hemoglobin 26.9 pg (27.0-33.0); Mean Corpuscular Volume 85.6 fL (80.0-98.0); Platelet Count 269 X10*3/uL (160-400); Red Blood Count 4.64 X10*6/uL (4.20-5.50); Red Cell Distribution Width 13.5 % (11.0-16.0); White Blood Count 6.2 X10*3/uL (4.8-10.8)
[2024-02-10 08:17] LABS: Appearance Urine Hazy; Color Urine Yellow; Glucose Urine UA Negative (Negative); Leukocyte Esterase Urine Small (1+) (Negative); Nitrite Urine Negative (Negative); UMIC TRIGGER UA YES; Urine Blood Negative (Negative); Urine Ketones Negative (Negative); Urine Protein Negative (Neg-Trace)
[2024-02-10 08:34] LABS: Bacteria Urine None Seen (None Seen); Hyaline Casts Urine 0-2 /LPF (0-2); RBC Urine 0-2 /HPF (0-2)
[2024-02-10 08:51] LABS: Alanine Aminotransferase 15 U/L (0-31); Albumin Level 3.9 g/dL (3.5-5.0); Alkaline Phosphatase 85 U/L (39-117); Anion Gap 13 (12-20); Aspartate Amino Transferase 18 U/L (5-31); Bilirubin Direct 0.1 mg/dL (0.0-0.5); Bilirubin Total 0.3 mg/dL (0.0-1.0); Blood Urea Nitrogen 13 mg/dL (9-16); Calcium 9.9 mg/dL (8.4-10.2); Carbon Dioxide 28 mmol/L (22-29); Chloride 105 mmol/L (96-108); Cholesterol 170 mg/dL (<200); Estimated Glomerular Filt Rate > 60; Glucose Random 103 mg/dL (60-115); HDL Cholesterol 53 mg/dL (>40); LDL Cholesterol Calculated 92 mg/dL (<100); Potassium 4.3 mmol/L (3.3-5.1); Sodium 142 mmol/L (135-145); Total Protein 7.6 g/dL (6.5-8.0); Triglycerides 127 mg/dL (<150)
[2024-02-10 08:58] LABS: Thyroid Stimulating Hormone 1.14 uIU/mL (0.32-4.0)
== END 2024-02-10 07:43 | disposition home or self-care (01) ==
LOC: HO.LAB 07:42
PROVIDERS: PCP Internal Medicine; Visit Provider Internal Medicine
DX: K21.9 Gastro-esophageal reflux disease without esophagitis (principal); I10 Essential (primary) hypertension; E66.01 Morbid (severe) obesity due to excess calories; Z68.41 Body mass index [BMI] 40.0-44.9, adult; E78.00 Pure hypercholesterolemia, unspecified
CPT/HCPCS: 36415; 80048; 80061; 80076; 81001; 84443; 85027

== ENCOUNTER → 2024-04-05 08:34 | Outpatient (BNVA) | payer BC, SELFPAY | PROVIDERS: PCP Internal Medicine ==

== ENCOUNTER → 2024-04-19 08:12 | Outpatient (BNVA) | payer BC, SELFPAY | PROVIDERS: PCP Internal Medicine ==

== ENCOUNTER → 2024-05-03 08:32 | Outpatient (BNVA) | payer BC, SELFPAY | PROVIDERS: PCP Internal Medicine ==

== ENCOUNTER → 2024-05-17 08:29 | Outpatient (BNVA) | payer BC, SELFPAY | PROVIDERS: PCP Internal Medicine ==

== ENCOUNTER 2024-08-24 07:50 | Outpatient (REF) | payer BC, SELFPAY ==
[2024-08-24 08:59] LABS: Hematocrit 41.2 % (37.0-47.0); Hemoglobin 12.8 g/dl (12.0-16.0); Mean Corpuscular HGB Conc 31.1 g/dl (31.0-35.0); Mean Corpuscular Hemoglobin 26.4 pg (27.0-33.0); Mean Corpuscular Volume 85.1 fL (80.0-98.0); Mean Platelet Volume 10.2 fL (9.4-12.3); Platelet Count 279 X10*3/uL (160-400); Red Blood Count 4.84 X10*6/uL (4.20-5.50); Red Cell Distribution Width 13.8 % (11.0-16.0); White Blood Count 5.8 X10*3/uL (4.8-10.8)
[2024-08-24 09:05] LABS: Appearance Urine Clear; Color Urine Yellow; Glucose Urine UA Negative (Negative); Leukocyte Esterase Urine Moderate (2+) (Negative); Nitrite Urine Negative (Negative); PH 6.5 (5.0-9.0); Specific Gravity - Urine 1.015 (1.005-1.025); UMIC TRIGGER UA YES; Urine Blood Negative (Negative); Urine Ketones Negative (Negative); Urine Protein Negative (Neg-Trace)
[2024-08-24 09:46] LABS: Bacteria Urine None Seen (None Seen); Hyaline Casts Urine 0-2 /LPF (0-2); RBC Urine 0-2 /HPF (0-2); WBC Urine 0-5 /HPF (0-5)
[2024-08-24 09:55] LABS: Alanine Aminotransferase 15 U/L (0-31); Albumin Level 3.8 g/dL (3.5-5.0); Alkaline Phosphatase 91 U/L (39-117); Anion Gap 12 (12-20); Aspartate Amino Transferase 22 U/L (5-31); Bilirubin Direct 0.1 mg/dL (0.0-0.5); Bilirubin Total 0.4 mg/dL (0.0-1.0); Blood Urea Nitrogen 14 mg/dL (9-16); Calcium 9.6 mg/dL (8.4-10.2); Carbon Dioxide 28 mmol/L (22-29); Chloride 107 mmol/L (96-108); Cholesterol 169 mg/dL (<200); Estimated Glomerular Filt Rate > 60; Glucose Random 103 mg/dL (60-115); HDL Cholesterol 56 mg/dL (>40); LDL Cholesterol Calculated 98 mg/dL (<100); Potassium 4.5 mmol/L (3.3-5.1); Sodium 142 mmol/L (135-145); Triglycerides 76 mg/dL (<150)
[2024-08-24 10:10] LABS: Thyroid Stimulating Hormone 0.54 uIU/mL (0.32-4.0)
== END 2024-08-24 07:51 | disposition home or self-care (01) ==
LOC: HO.LAB 07:50
PROVIDERS: PCP Internal Medicine; Visit Provider Internal Medicine
DX: I10 Essential (primary) hypertension (principal); E78.00 Pure hypercholesterolemia, unspecified
CPT/HCPCS: 36415; 80048; 80061; 80076; 81001; 84443; 85027

== ENCOUNTER 2025-02-20 10:12 | Outpatient (AMB) | payer BC, SELFPAY ==
--- NOTE | 2025-02-20 10:17 | MHC.PC.OV ---
Vital Signs 02/20/25 10:18 Height 5 ft 2 in Weight 256 lb 4 oz BMI 46.9 BP 160/90 H Blood Pressure Location Lt brachial Position Sitting Pulse 90 Pulse Source Pulse Oximeter Temp 97.3 F Temp Source Temporal Artery Scan Pulse Oximetry (%) 96 Oxygen Delivery Method Room Air Intake Visit Reasons: 6 month f/u Intake Note: Patient is here to follow up on HTN, GERD, Hypothyroidism. Consultants Intern Required: No Grinder Set Up Operator Universal: Not Required per policy Accompanied by: Self / Same As Patient Allergies acetaminophen (From Percocet) Allergy (Unknown, Verified 02/20/25 10:18) Vomiting morphine (MORPHINE) Allergy (Unknown, Verified 02/20/25 10:18) PALPITATION oxycodone (From Percocet) Allergy (Unknown, Verified 02/20/25 10:18) Vomiting lisinopril Adverse Reaction (Intermediate, Verified 02/20/25 10:18) Diarrhea Tobacco use date assessed: 02/20/25 Fall risk assessment: No Falls in past year Last assessed Fall Risk: 02/20/25 Dental Screening Dental Screen Date: 08/22/24 [facility] Medical History Post herpetic neuralgia Essential hypertension Hypercholesterolemia Morbid obesity with BMI of 40.0-44.9, adult Bautista's cyst of knee High cholesterol Hypothyroidism Hypertension Surgical History History of tubal ligation History of cholecystectomy Family History Mother No problems noted. Father No problems noted. Other Diabetes Social History Housing: House Alcohol intake: never Patient Tobacco Use Status: Never used Tobacco e-Cigarette/Vaping Use: Never Used Second Hand Smoke Exposure: No service: No Current occupational status: employed Cognitive needs: No Hearing needs: No Vision needs: Yes (glasses) Questionnaire PHQ-9 Over the last 2 weeks, how often have you been bothered by any of the following problems? 1. Little interest or pleasure in doing things: not at all 2. Feeling down, depressed, or hopeless: not at all 3. Trouble falling or staying asleep, or sleeping too much: not at all 4. Feeling tired or having little energy: not at all 5. Poor appetite or overeating: not at all 6. Feeling bad about yourself - or that you are a failure or have let yourself or your family down: not at all 7. Trouble concentrating on things, such as reading the newspaper or watching television: not at all 8. Moving or speaking so slowly that other people could have noticed. Or the opposite - being so fidgety or restless that you have been moving around a lot more than usual: not at all 9. Thoughts that you would be better off or of hurting yourself in some way: not at all Total score: 0 Depression Screening Interpretation: Negative Depression Screening Done: Yes Source: Developed by Drs. Kevin Braxton, Sandie Felipe, Williams Villalpando and colleagues, with an educational ean from [employer]. Thrive Questionnaire Date Thrive assessed: 08/22/24 I am a: Patient What is your living situation today?: I have a steady place to live Within the past 12 months, did the food you bought not last and you didn't have the money to get more?: Never true Within the past 12 months, did you worry whether your food would run out before you got money to buy more?: Never true Do you have trouble paying for medicines?: No Do you have trouble getting transportation to medical appointments?: No Do you have trouble paying your heating and electricity bill?: No Do you have trouble taking care of your child, family member or friend?: No Do you have trouble with day-to-day activities such as bathing, preparing meals, shopping, managing finances, etc.?: No Are you currently unemployed and looking for a job?: No Are you interested in more education?: No Please select the resources that you would like help with: None Currently or been in a relationship where the following occur: No concerns reported THRIVE Score: 0 AUDIT C Alcohol Use Questionnaire (AUDIT-C) 1. How often do you have a drink containing alcohol?: Never Total Score: 0 KERMIT-7 AMB Questionnaire KERMIT-7 Date KERMIT - 7 assessed: 08/22/24 Feeling nervous, anxious, or on edge: 0 = Not at all Not being able to stop or control worryin = Not at all Worrying too much about different things: 0 = Not at all Trouble relaxin = Not at all Being so restless that it is hard to sit still: 0 = Not at all Becoming easily annoyed or irritable: 0 = Not at all Feeling afraid as if something awful might happen: 0 = Not at all Total KERMIT-7 score (0-4 normal; 5-9 mild; 10-14 moderate; 15-21 severe): 0 Source: Developed by Drs. Kevin Braxton, Sandie Felipe, Williams Villalpando and colleagues, with an educational ean from [employer]. Physical exam (Primary Care) Vital Signs: Last Vital Signs Temp 97.3 F 02/20/25 10:18 Pulse 90 02/20/25 10:18 BP 160/90 H 02/20/25 10:18 Pulse Ox 96 02/20/25 10:18 Oxygen Delivery Method Room Air 02/20/25 10:18 BMI result Body Mass Index 46.9 Tobacco/Smoking Status: Tobacco use Status Tobacco use date assessed 02/20/25 02/20/25 10:23 Patient Tobacco Use Status Never used Tobacco 02/20/25 10:23 e-Cigarette/Vaping Use Never Used 02/20/25 10:23 PHQ-9: PHQ-9 Score PHQ-9: Total score 0 02/20/25 10:23 Depression Screening Interpretation: Negative Thrive Assessment: Date of Thrive Assessment Date Thrive assessed 08/22/24 02/20/25 10:23 Currently or been in a relationship where the following occur: No concerns reported Coding Level of Care Code Est Pt Level 4 (15930) Complex EM visit Add On G2211 Diagnoses Hypertension I10 Assessment & Plan Assessment & Plan (1) Hypertension: Code(s): I10 - Essential (primary) hypertension Category: Medical Plan: HCTZ added to the regimen. Counselling on low salt intake done Plan History of Present Illness - The patient is a 74-year-old female presenting with elevated blood pressure. - Reports fluctuating blood pressure with recent readings up to 160 mmHg, attributed to increased salt intake. - Previously on hydrochlorothiazide, plans to restart due to edema. - History of herpes zoster, resolved after six to eight months. - Manages GERD with elevated sleeping position and omeprazole. - Up to date on mammogram and colonoscopy screenings. 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 - Driving: The patient drives, including occasional night driving, without visual disturbances. - Sleep: Reports good sleep quality, averaging six to eight hours per night, and feels rested upon waking. Review of Systems - Cardiovascular: Reports elevated blood pressure. Denies chest pain or palpitations. - Dermatological: Reports resolved herpes zoster rash. - Gastrointestinal: Reports gastroesophageal reflux disease managed with omeprazole. Denies abdominal pain or changes in bowel habits. - Neurological: Denies headaches, dizziness, or visual disturbances. - Genitourinary: Denies urinary incontinence. Physical Exam General: Cooperative and healthy appearing Nutritional Appearance: Well nourished Orientation/consciousness: Patient oriented x3 Limitations: No limitations Head: Normal to inspection General: Appearance normal, both eyes and all related structures Neck: Normal visual inspection Chest: Normal palpation of entire chest wall Respiratory: N ormal respiratory effort Neurology: Patient oriented x3, no halos around lights, hearing is good, sleeps raised due to GERD. Results - Labs: Recent blood work was reported as normal. Plan 1. Essential Hypertension - Restart hydrochlorothiazide and reduce salt intake to manage blood pressure. 2. Herpes Zoster - Rash resolved, no further intervention needed. 3. Gastroesophageal Reflux Disease (Gerd) - Maintain current treatment with omeprazole and head elevation during sleep. Discussion Notes During the visit, we discussed the patient's elevated blood pressure and the plan to restart hydrochlorothiazide to help manage it. I advised the patient to reduce salt intake as a lifestyle modification to aid in controlling her blood pressure. We also reviewed her resolved herpes zoster rash, which requires no further treatment. For her GERD, I recommended continuing with omeprazole and maintaining an elevated sleeping position. We confirmed that her recent blood work was normal and that she is up to date with her mammogram and colonoscopy screenings. Follow-up is scheduled for six months to reassess her blood pressure management. Patient Instructions - Restart hydrochlorothiazide as discussed to help manage blood pressure. - Reduce salt intake to aid in controlling blood pressure levels. - Continue taking omeprazole and sleep with head elevated to manage GERD. - Follow up in six months for blood pressure reassessment.
[2025-02-20 10:18] VITALS: BP 160/90; PULSE 90; TEMP 36.3; O2SAT 96; BMI 46.9
--- OUTSIDE RECORDS SUMMARY | 2025-02-20 10:43 | XMS_ITS | Clinical Summary ---
Author Organization [facility] ity Address [address] [place] [address] Care Team Providers Care Curtain Fitter Name Role Phone Unavailable Primary Care Provider Unavailabl e Social History Tobacco Use Types Packs/Day Years Used Date Smoking Tobacco: Never Assessed Comments Unknown Sex and Gender Information Value Date Recorded Sex Assigned at Not on file Legal Sex Female 4:01 PM EST Gender Identity Not on file Sexual Orientation Not on file Plan of Treatment Health Maintenance Due Date Last Done Comments Breast Cancer Screening 1950 DTaP,Tdap,and Td Vaccines (1 - Tdap) 11/25/1970 Pneumococcal Vaccine: 50+ Ye ars (1 of 1 - PCV) 11/25/2001 Zoster Vaccines (1 of 2) 11/25/2001 COVID-19 Vaccine (1 - 2023-2 5 season) 2024 Depression Screening 07/17/2024 Influenza Vaccine (#1) 2025 RSV Immunization Adult Patie nts (1 - 1-dose 75+ series) 11/25/2026 HIB Vaccines Aged Out No longer eligi ble based on patient's age to complete this topic HPV Vaccines Aged Out No longer eligi ble based on patient's age to complete this topic Hepatitis A Vaccines Aged Out No long er eligible based on patient's age to complete this topic Hepatitis B Vaccines Aged Out No long er eligible based on patient's age to complete this topic IPV Vaccines Aged Out No longer eligi ble based on patient's age to complete this topic MMR Vaccines Aged Out No longer eligi ble based on patient's age to complete this topic Meningococcal ACWY Vaccine Aged Out N o longer eligible based on patient's age to complete this topic Meningococcal B Vaccine Aged Out No l onger eligible based on patient's age to complete this topic RSV Immunization Patients Un bernard 20 months Aged Out No longer eligible b ased on patient's age to complete this topic Varicella Vaccines Aged Out No longer eligible based on patient's age to complete this topic
--- OUTSIDE RECORDS SUMMARY | 2025-02-20 10:43 | XMS_ITS | Patient Health Record ---
Author Organization [email or web address] [facility] Address [address] [place] [address] Care Team Providers Care Airframe Technical Officer Name Role Phone FERNANDOKARENAIDEE Primary Care Provider TAMIE Chavis Unavailable [phone] Allergies Allergen (clinical drug ingredient) Drug/Non Drug Allergy documented on EMR Reaction Allergy Type Onset Date Status acetaminophen / oxycodone Percocet Pass Out Drug Allergy Active morphine Morphine Tachycardia, Pass Out Drug Allergy Active Reason For Referral No Information Medications Medication SIG (Take, Route, Frequency, Duration) [...] stop date) Former Smoker NA - NA AUDIT-C (Standard) Question Answer Notes Did you have a drink containing alcohol in the p ast year? No Points 0 Interpretation Negative Tobacco Control (Standard) Question Answer Notes Tobacco use: Former smoker How long has it been since you last smoked? Grea ter than 10 years Problems Problem Type SNOMED Code ICD Code Onset Dates Problem Status W/U Status Risk Notes Problem Essential hypertension (72952289) Essential (primary) hypertension (I10) Active confirmed Problem Hypothyroidism (90074813) Hypothyroidism, unspecified (E03.9) Active confirmed Problem Hyperlipidemia (27380220) Hyperlipidemia, unspecified (E78.5) Active confirmed Problem Gastro-esophageal reflux disease without esophagitis (528690739) Gastro-esophagea l reflux disease without esophagitis (K21.9) Active confirmed Problem COVID-19 (224993994) COVID-19 (U07.1) Active confirmed Encounters Encounter Location Date Provider Diagnosis Total [facility] [address] [place] [address] 01/02/2025 TAMIE WINSTON Encounter for gynecological examination [...] breast (ICD-10 - Z12.31) Plan Of Treatment Pending Test Test Name Order Date MM Digital Screening Mammogram 3D 2024 MM Digital Screening Mammogram 3D 2023 Insurance Providers Payer Name Payer Address Payer Phone Subscriber Number Group Number Insured Name Patient Relationship to Insured Coverage Start Date Coverage End Date [employer] [address] [place] [address] [id number] CATHIE GARCIA Self - patient is the insured Medical (General) History Medical History History ICD Code Essential (primary) hypertension I10 COVID-19 U07.1 Hyperlipidemia, unspecified E78.5 Hypothyroidism, unspecified E03.9 Gastro-esophageal reflux disease without esophagitis K21.9 Surgical History Surgery Date(Month/Year) Cervical Cone Bx 1984 Moh's Surgery-Skin Cancer 09/2023 Hospitalization History Reason Date(Month/Year) See Surgical Hx Childbirth
== END 2025-02-20 10:42 | disposition home or self-care (01) ==
LOC: HO.HMCH 10:13
PROVIDERS: PCP Internal Medicine; Visit Provider Internal Medicine
DX: I10 Essential (primary) hypertension (principal)

== ENCOUNTER 2025-03-29 10:45 | Outpatient (AMB) | payer BC, SELFPAY ==
--- OUTSIDE RECORDS SUMMARY | 2025-01-02 09:00 | XMS_ITS ---
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 Grea ter than 10 years Encounters Encounter Location Date Provider Diagnosis [address] [id number] 01/02/2025 TAMIE WINSTON Encounter for gynecological examination (general) (routine) without abnormal findings Z01.419 and Encounter for screening mammogram for malignant neoplasm of breast Z12.31 Assessments Encounter Date Diagnosis (ICD Code) Assessment Notes Treatment Notes Treatment Clinical Notes Section Notes 01/02/2025 Encounter for gynecological examination (general) (routine) without abnormal findings (ICD-10 - Z01.419) During the visit, the following areas of concern were addressed: Discussed sstopping cervical cancer screening as per ASCCP guidelines. Advised continued annual pelvic exams. Patient encouraged to increase her level of exercise. SBE technique encouraged/tau ght. Patient reminded when annual mammogram is due. Patient encouraged to keep colon screening up to date. 01/02/2025 Encounter for screening mammogram for malignant neoplasm of breast (ICD-10 - Z12.31) Plan Of Treatment Treatment Notes Assessment Notes Encounter for gynecological examination (general) (routine) without abnormal findings During the visit, the following areas of concern were addressed: Discussed sstopping cervical cancer screening as per ASCCP guidelines. Advised continued annual pelvic exams. Patient encouraged to increase her level of exercise. SBE technique encouraged/taught. Patient reminded when annual mammogram is due. Patient encouraged to keep colon screening up to date. Pending Test Test Name Order Date MM Digital Screening Mammogram 3D 2024 Next Appt Details Follow Up: 1 Year, Reason: Y early Mine Safety Director Exam Progress Notes * JOHN GARCIAOB:1950 ( 74 yo F)Acc No.[id number]:01/02/2025 PROGRESS NOTES Patient: CATHIE MURRIETA Provider: Rehana WINSTON MD :1950 A ge:74 Y S ex:Female Date:01/02/2025 Address:[address] [place] [address] Pcp:AIDEE KING Subjective: * Chief Complaints: * 1 . 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 She has been in state of good health since her last exam. She has the following concerns: none* She has not received the Covid-19 vaccine. Relationship status: * for 46 years. She is occasionally sexually active - rare, due to 's COPD. Sexual partner(s): male. She does not wish to have STI testing. She does *not report vaginal dryness. She does not have hot flashes/night sweats. The patient has not had an abnormal pap smear within the last 5 years. She had a cone biopsy in her 30's, with normal paps since then. Her most recent pap smear was 01/01/24 - NIL, neg HR HPV. Next due for cotesting in 2026. She has not been diagnosed with breast cancer. She does *not have a family history of breast cancer. Her last mammogram was *September/2023 at [facility]. She does *not have a family history of colon cancer. She a has not had a colonoscopy. She did Cologuard in 05/2023. The patient does* exercise. She exercises x 3 days/week by walking. * ROS: A nnual Mine Safety Director Exam ROS: Bowel habit changes d enies. B ladder symptoms d enies. V aginal discharge, unusual d enies. V aginal itch or odor d enies. w eight or appetite changes d enies. C hest pains, SOB d enies. d epression d enies.? B reast: Denies B reast lump. D enies N ipple discharge.? H ematology: Denies S wollen glands. S kin: Patient denies c hanging moles. P sychiatric: Denies A nxiety. * Medical History: * Mine Safety Director History: G ravida/ Para 2 /2. L ast Pap Smear: NIL , NEG HRHPV. M ammogram: . A bnormal Pap Smear: C one Biopsy In Her 30's. H istory of STD's: n one. M enarche 1 2. C olonoscopy C ologuard 05/2023. * OB History: T otal pregnancies 2 . T otal living children 2 . N VD 2 . P regnancy # 1: n ormal spontaneous vaginal delivery (), 07/23/70, Hans, 6lb 7oz, no complications. P regnancy # 2: n ormal spontaneous vaginal delivery (), [birth year]/11/[birth year], Ever, 8lb2oz, no complications. * Social History: T obacco Use: T obacco Control (Standard) T obacco use: F ormer smoker H ow long has it been since you last smoked??Greater than 10 years M iscellaneous: C hildren: yes, 2. Domestic violence: no. Exercise: yes. Home smoke detector use: yes, smoke detectors, carbon monoxide detector. Housing: owns a home. Living with: spouse, son, 2 grandsons. Marital status: , [place]. 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 Pets: dogs: 2 Frenchies and 1 mutt (blue smelter operator mix). Sexual abuse: no. Sexually active: yes. Verbal abuse: no. * Medications: T aking Losartan Potassium 100 MG Tablet TAKE 1 TABLET BY MOUTH ONCE DAILY Oral , Taking Simvastatin 10 MG Tablet Oral , Taking Levothyroxine Sodium 75 MCG Tablet Oral , Taking Omeprazole 20 MG Capsule Delayed Release Oral Objective: * Vitals: * Examination: G eneral Examination: GENERAL APPEARANCE: i n no acute distress, well developed, well nourished, colon therapist present in room. HEAD: n ormocephalic, atraumatic. NECK/THYROID: n jennifer supple, full range of motion, thyroid normal. LYMPH NODES: n o axillary or supraclavicular adenopathy.? SKIN: normal, good turgor, no rashes, no suspicious lesions. BREASTS: normal, no dimpling, no discharge, no drainage, no masses palpable bilaterally, nontender. ABDOMEN: soft, non-tender, non distended without masses or hepatosplenomegay. RECTAL: normal tone, no masses palpable. BACK: no costovertebral angle tenderness. FEMALE GENITOURINARY: V ulva without lesions or masses, vagina pink without abnormal discharge, lesions or masses, cervix appears normal and is not tender to palpation, uterus is normal size, mobile, nontender and anteverted, ovaries are not palpable. NEUROLOGIC: alert and oriented, gait normal. PSYCH: alert, oriented, cognitive function intact, cooperative with exam, good eye contact, mood/affect full range, speech clear. Assessment: * Assessment: 1. E ncounter for gynecological examination (general) (routine) without abnormal findings - Z01.419 (Primary) 2 . E ncounter for screening mammogram for malignant neoplasm of breast - Z12.31 Plan: * Treatment: 2. E ncounter for screening mammogram for malignant neoplasm of breast I maging: MM Digital Screening Mammogram 3D * Follow Up: 1 Year (Reason: Yearly Mine Safety Director Exam) * Images: Billing Information: * Visit Code: 46814 Preventive Care Est Pt. Age 65 and over. * Procedure Codes: * Electronic signature of TAMIE WINSTON MD on 03/29/2025 at 10:47 AM EDT Sign off status: Pending * Provider: Rehana WINSTON MD Date: 0 01/02/2025 Generated for Isaii rani/Hedii/eTransmitting on: 0 03/29/2025 10:47 AM EDT History and Physical Notes * HPI (History of Present Illness) Category Sub-Category Detail Notes Category Not es Constitutional Cathie is a 74yo who presents for her yearly tornado chaser exam. She has been in state of good health since her last exam. She has the following concerns: none* She has not received the Covid-19 vaccine. Relationship status: * for 46 years. She is occasionally sexually active - rare, due to 's COPD. Sexual partner(s): male. She does not wish to have STI testing. She does *not report vaginal dryness. She does not have hot flashes/night sweats. The patient has not had an abnormal pap smear within the last 5 years. She had a cone biopsy in her 30's, with normal paps since then. Her most recent pap smear was 01/01/24 - NIL, neg HR HPV. Next due for cotesting in 2026. She has not been diagnosed with breast cancer. She does *not have a family history of breast cancer. Her last mammogram was *September/2023 at [facility]. She does *not have a family history of colon cancer. She a has not had a colonoscopy. She did Cologuard in 05/2023. The patient does* exercise. She exercises x 3 days/week by walking. Examination Category Sub-Category Detail Notes Category Not es General Examination GENERAL APPEARANCE: in no ac kane distress, well developed, well nourished, colon therapist present in room HEAD: normocephalic, atrau matic NECK/THYROID: neck supple, full ra nge of motion, thyroid normal ABDOMEN: soft, non-tender, no n distended without masses or hepatosplenomegay NEUROLOGIC: alert and oriented, gait normal SKIN: normal, good turgor, no rashes, no suspicious lesions BACK: no costovertebral an gle tenderness BREASTS: normal, no dimpling, no discharge, no drainage, no masses palpable bilaterally, nontender LYMPH NODES: no axillary or supra clavicular adenopathy RECTAL: normal tone, no mass es palpable PSYCH: alert, oriented, cog nitive function intact, cooperative with exam, good eye contact, mood/affect full range, speech clear FEMALE GENITOURINARY: Vulva without lesi ons or masses, vagina pink without abnormal discharge, lesions or masses, cervix appears normal and is not tender to palpation, uterus is normal size, mobile, nontender and anteverted, ovaries are not palpable
--- OUTSIDE RECORDS SUMMARY | 2025-03-29 10:47 | XMS_ITS | Patient Health Record ---
Author Organization [facility] Address [address] [place] [address] Care Team Providers Care Road Contractor Name Role Phone FERNANDOKARENAIDEE Primary Care Provider TAMIE Chavis Unavailable [phone] Allergies Allergen (clinical drug ingredient) Drug/Non Drug [...] W/U Status Risk Notes Problem Essential hypertension (78756135) Essential (primary) hypertension (I10) Active confirmed Problem Hypothyroidism (56095229) Hypothyroidism, unspecified (E03.9) Active confirmed Problem Hyperlipidemia (86559684) Hyperlipidemia, unspecified (E78.5) Active confirmed Problem Gastro-esophageal reflux disease without esophagitis (899305429) Gastro-esophagea l reflux disease without esophagitis (K21.9) Active confirmed Problem COVID-19 (631507042) COVID-19 (U07.1) Active confirmed Encounters Encounter Location Date Provider Diagnosis Total [facility] [address] [place] [address] 01/02/2025 TAMIE WINSTON Encounter for gynecological examination [...] End Date [employer] [address] [place] [address] [phone] [id number] CATHIE GARCIA Self - patient is the insured Medical (General) History Medical History History ICD Code Essential (primary) hypertension I10 COVID-19 U07.1 Hyperlipidemia, unspecified E78.5 Hypothyroidism, unspecified E03.9 Gastro-esophageal reflux disease without esophagitis K21.9 Surgical History Surgery Date(Month/Year) Cervical Cone Bx 1984 Moh's Surgery-Skin Cancer 09/2023 Hospitalization History Reason Date(Month/Year) See Surgical Hx Childbirth
--- OUTSIDE RECORDS SUMMARY | 2025-03-29 10:48 | XMS_ITS | Clinical Summary ---
Author Organization [facility] ity Address [address] [place] [address] Care Team Providers Care Noxious Weeds And Pest Inspector Name Role Phone Unavailable Primary Care Provider [...]
[2025-03-29 11:03] VITALS: BP 126/68; PULSE 90; RESP 16; TEMP 36.6; O2SAT 97; BMI 47.4
--- NOTE | 2025-03-29 11:03 | AM.OFFWIN_ITS ---
Intake Vital Signs 03/29/25 11:03 Height 5 ft 2 in Weight 259 lb BMI 47.4 BP 126/68 Blood Pressure Location Lt brachial Position Sitting Respiration 16 Pulse 90 Pulse Source Pulse Oximeter Temp 97.9 F Pulse Oximetry (%) 97 Oxygen Delivery Method Room Air Intake Visit Reasons: EP-Lt knee pain Intake Note: Pt is here today c/o Lt knee pain x2wks: no injury noted Patient Tobacco Use Status: Never used Tobacco Allergies acetaminophen (From Percocet) Allergy (Unknown, Verified 03/29/25 11:04) Vomiting morphine (MORPHINE) Allergy (Unknown, Verified 03/29/25 11:04) PALPITATION oxycodone (From Percocet) Allergy (Unknown, Verified 03/29/25 11:04) Vomiting lisinopril Adverse Reaction (Intermediate, Verified 03/29/25 11:04) Diarrhea HPI HPI Comments History of Present Illness Details This is a 74-year-old female presenting for evaluation of left knee pain that she has had for the past 2 weeks. Patient denies any injury or trauma preceding the onset of her symptoms but states that she has pain in the front of her left knee and the outside of her left knee. Patient has a history of a B emanuel's cyst in her LLE, however denies any posterior left knee pain or left calf pain/swelling. Patient states that she has minimal pain at rest but increased pain with ambulation. She has been taking Tylenol only without relief of her discomfort. [facility] Medical History Post herpetic neuralgia Essential hypertension Hypercholesterolemia Morbid obesity with BMI of 40.0-44.9, adult Bautista's cyst of knee High cholesterol Hypothyroidism Hypertension Surgical History History of tubal ligation History of cholecystectomy Family History Mother No problems noted. Father No problems noted. Other Diabetes Social History Housing: House Alcohol intake: never Patient Tobacco Use Status: Never used Tobacco e-Cigarette/Vaping Use: Never Used Second Hand Smoke Exposure: No service: No Current occupational status: employed Cognitive needs: No Hearing needs: No Vision needs: Yes (glasses) Review of Systems Const All systems reviewed & are unremarkable except as noted in HPI and below Reports no additional complaints Musc Denies myalgias, Denies deformity, Reports arthralgias (left knee), Denies joint swelling, Denies limited range of motion, Denies muscle weakness and Denies stiffness Skin/Breast Reports system reviewed and no additional complaints, except as documented Psych Reports no additional complaints Physical Exam Vital Signs: Last Vital Signs Temp 97.9 F 03/29/25 11:03 Pulse 90 03/29/25 11:03 Resp 16 03/29/25 11:03 BP 126/68 03/29/25 11:03 Pulse Ox 97 03/29/25 11:03 Oxygen Delivery Method Room Air 03/29/25 11:03 BMI result Body Mass Index 47.4 Const General: cooperative, healthy appearing, comfortable, no acute distress, well developed, alert, awake and Physically active Nutritional Appearance: obese Orientation/consciousness: patient oriented x3 Limitations: no limitations Skin General skin exam: no rashes or lesions noted, skin not dry, no erythema and no excoriation(s) Neuro General: patient oriented x3 Extrem Left lower extremity: full ROM (full extension L. knee with passive ROM), no joint enlargement, knee (no pain to palpation of posterior fossa) Details: tenderness (anterior joint line and lateral knee joint), normal ROM and knee ligament exam abnormal Details: varus stress test Details: pain noted (minimal); no swelling and lower leg (no calf tenderness, edema, erythema or palpable cord); no edema Psych Appearance: grossly normal Mental Status: mental status grossly normal Insight: Good insight present (Psych) Judgement: Good judgement present (Psych) Results Reviewed Results Reviewed: L. knee x.ray reviewed with patient; no acute findings noted. Assessment & Plan Assessment & Plan (1) Strain of left knee: Comment: Patient's imaging is reviewed. Her history coupled with her examination is most likely consistent with a strained ligament laterally. Patient is declining any prescription medication for treatment and prefers to take Tylenol as needed. Code(s): S86.912A - Strain of unspecified muscle(s) and tendon(s) at lower leg level, left leg, initial encounter Qualifiers: Encounter type: initial encounter Qualified Code(s): S86.912A - Strain of unspecified muscle(s) and tendon(s) at lower leg level, left leg, initial encounter Plan: Tylenol as needed for pain, elevate left lower extremity after activity and use ice at 20 minute intervals. Patient is to follow up with her primary care provider within 2 weeks if her symptoms worsen. Orders: Orders XR knee LT 4V Today S86.912A - Strain of unspecified muscle(s) and tendon(s) at lower leg level, left leg, initial encounter Coding Level of Care Code Est Pt Level 3 (83559) Diagnoses Strain of left knee, initial encounter S86.912A Encounter type: initial encounter Time Spent (min) 25
== END 2025-03-29 11:58 | disposition home or self-care (01) ==
LOC: HO.HMCWIC 10:45
PROVIDERS: PCP Internal Medicine; Visit Provider Physician Assistant
DX: S86.912A Strain of unspecified muscle(s) and tendon(s) at lower leg level, left leg, initial encounter (principal)

== ENCOUNTER 2025-03-29 10:45 | Outpatient (REF) | payer BC, SELFPAY ==
--- NOTE | ~2025-03-29 | XR_ITS ---
CLINICAL HISTORY: S86.912A - Strain of unspecified muscle(s) and tendon(s) at lower leg le... 4 views left knee Comparison: None Findings: No fractures, subluxations or dislocations. Mild joint space narrowing medial knee compartment with small enthesophytes No osteochondral lesions or loose bodies. Normal patellar alignment. No suprapatellar joint effusion.No prepatellar soft tissue swelling. Normal bone mineralization and soft tissues. No unusual radiopaque foreign body. Impression: 1. No acute osseous findings This document has been electronically signed by: Martir Kirk MD on 03/29/2025 12:26:26
== END 2025-03-29 10:46 | disposition home or self-care (01) ==
LOC: HO.HMGCX 10:45
PROVIDERS: PCP Internal Medicine; Visit Provider Physician Assistant
DX: S86.912A Strain of unspecified muscle(s) and tendon(s) at lower leg level, left leg, initial encounter (principal); X58.XXXA Exposure to other specified factors, initial encounter
CPT/HCPCS: 73564

== ENCOUNTER → 2025-03-29 11:32 | Outpatient (BNV) | payer BC, SELFPAY | PROVIDERS: PCP Internal Medicine; Visit Provider Radiology Diagnostic Radiology | DX: S86.912A Strain of unspecified muscle(s) and tendon(s) at lower leg level, left leg, initial encounter (principal) | CPT/HCPCS: 73564 ==